=== PATIENT | male | born 1975 | race Caucasian/White ===

== ENCOUNTER 2021-03-29 05:56 | Day surgery (SDC) | payer BC ==
--- NOTE | 2021-03-25 09:34 | RAD REPORT ---
EXAM DESCRIPTION: RAD - Chest Pa And Lat (2 Views) - 03/25/2021 9:22 am CLINICAL HISTORY: preop COMPARISON: No comparisons FINDINGS: No evidence of edema or pneumonia. The heart size is within normal limits.No acute osseous abnormality. No significant pleural effusions or pneumothorax. IMPRESSION: No acute cardiopulmonary disease.
[2021-03-25 09:48] LABS: Absolute Lymphocytes (CBC) 1.7 K/uL (0.7-4.9); Basophils % 1.2 % (0-1.3); Hematocrit 45.1 % (39.6-49.0); Lymphocytes % 30.6 % (15.3-44.8); MPV 8.6 fL (7.6-11.3); RBC Red Blood Cell Count 4.89 M/uL (4.33-5.43)
[2021-03-25 09:53] LABS: Protime INR 0.96
[2021-03-25 10:18] LABS: Potassium 4.4 mmol/L (3.5-5.1)
[2021-03-29] MEDS ORDERED: Ringers Lactate 1,000 ML IV ONE ×2 (06:22→09:59)
[2021-03-29] MEDS ORDERED: NS 0.9% VIAL 10 ML ONE (06:36)
[2021-03-29] MEDS ORDERED: LIDOCAINE 1% MPF 5 ML VIAL ONE ×2 (06:36→07:39)
[2021-03-29] MEDS ORDERED: FENTANYL CITR 100 MCG/2 ML ONE ×4 (06:36→10:15)
[2021-03-29] MEDS ORDERED: dexAMETHasone 4 MG/ML VIAL ONE (06:37)
[2021-03-29] MEDS ORDERED: MIDAZOLAM HCL 2 MG/2 ML INJ ONE (06:37)
[2021-03-29] MEDS ORDERED: CEFAZOLIN/SWI 2gm 2 GM/20 ML SYR ONE (06:43)
[2021-03-29] MEDS ORDERED: ACETAMINOPHEN 500 MG TAB ONE (06:45)
[2021-03-29] MEDS ORDERED: CELECOXIB 100 MG CAPSULE ONE (06:45)
[2021-03-29] MEDS ORDERED: propofoL 200 MG/20 ML VIAL IV ONE (07:38)
--- NOTE | 2021-03-29 10:48 | P.BOP ---
Preoperative diagnosis: left knee ACL tear, left knee medial meniscus tear Postoperative diagnosis: same Primary procedure: left knee arthroscopic ACL reconstruction with Achilles allograft Secondary procedure: left knee arthroscopic partial medial meniscectomy Remedial Masseur: NONE,NONE Estimated blood loss: 5 cc Specimen: none Findings: see dictation Anesthesia: General Complications: None Implants: 7x20 mm Biocomposite screw, 10 x 20 mm Delta screw, Backup Swivelock Fluids & blood products: per anesthesia record; TT: 135 mins @ 300 mmHg Transferred to: Recovery Room Condition: Good
[2021-03-29] MEDS: FENTANYL CITR 100 MCG/2 ML ONE ×2 (11:09→11:24)
--- NOTE | 2021-03-29 11:49 | RAD REPORT ---
EXAM DESCRIPTION: RAD - Knee Left 2 View - 03/29/2021 11:02 am CLINICAL HISTORY: s/p ACL reconstruction partial medial meniscectomy COMPARISON: No comparisons FINDINGS: No fracture or suspicious bone finding identifiable. There are postsurgical changes relate d to ACL reconstruction. Air in fluid in the joint space are as expected.No soft tissue foreign body. IMPRESSION: Postsurgical changes are present the left knee with no suspicious or unexpected finding.
[2021-03-29] MEDS ORDERED: HYDROCODONE/APAP 10/325 TAB ONE (12:12)
--- NOTE | 2021-03-29 14:26 | OP ---
Date of Procedure: 03/29/2021 Surgeon: Berto Snell MD Preoperative Diagnoses: 1. Left knee anterior cruciate ligament tear. 2. Left knee medial meniscus tear. Postoperative Diagnoses: 1. Left knee anterior cruciate ligament tear. 2. Left knee medial meniscus tear. 3. Left knee chondromalacia medial femoral condyle. Procedures: 1. Left knee arthroscopic anterior cruciate ligament reconstruction with Achilles allograft. 2. Left knee arthroscopic partial meniscectomy. Anesthesia: General LMA. Fluids: Per Anesthesia record. Estimated Blood Loss: 5 mL. Implants: 1. A 7 x 20 mm Arthrex BioComposite screw. 2. A 10 x 20 mm delta screw. 3. A SwiveLock backup fixation. Complications: None. Indication For Procedure: Mitchel is a 45-year-old male, who presented to my clinic with signs and symptoms consistent with left knee chronic ACL tear with MRI findings consistent with an ACL tear, medial meniscus tear. I discussed with the patient at length risks and benefits associated with operative and nonoperative treatment and he expressed understanding and elected to proceed with left knee ACL reconstruction with Achilles allograft. Description Of Procedure: After informed consent was obtained, the patient was identified in the preoperative holding area. The left lower extremity was marked. The patient underwent a left adductor canal block performed by Anesthesia for postoperative pain control. He was then taken back to the operating room, transferred on the operating table in supine fashion and placed under general LMA anesthesia. The left lower extremity was then examined and the patient had instability with Adeline with pivot shift. The left lower extremity was then prepped and draped in the usual sterile fashion. A time-out was initiated. The correct patient and procedure were confirmed and identified. The patient did receive his preoperative prophylactic antibiotics. A stab incision was made just lateral to the patellar tendon, and then standard anteromedial and anterolateral portals were created. On the back table, the nurse assist prepared the Achilles allograft for re-implantation using a 9 x 20 mm bone plug and a 65 mm tendon length with 10 mm of width. Diagnostic arthroscopy was performed. The patient was noted to have some grade 2 chondromalacia changes of the undersurface of the patella. The arthroscope was then brought into both medial and lateral gutters. There were no loose bodies found within the gutters. The arthroscope was then brought into the medial compartment where the patient was noted to have a tear in the posterior horn of the medial meniscus. Using meniscal biters and arthroscopic shaver, a partial medial meniscectomy was performed to smooth meniscal borders. There were also some grade 3 chondromalacia changes of the posterior aspect of the medial femoral condyle. The arthroscope was then brought into the intercondylar notch. The patient was noted to have an obvious ACL tear with ACL stumps noted. The ACL remnants were then debrided using an arthroscopic shaver. There was approximately a 10 x 5 mm chondral loose body within the notch and was removed using pituitary grasper. Soft tissues were then debrided off the lateral femoral condyle using a radiofrequency ablator. The arthroscope was brought into the lateral compartment where the patient was noted to have an intact lateral meniscus, which was stable to probe as well as no significant chondromalacia noted to the lateral femoral condyle and lateral tibial plateau. An 11 mm retrocutter was then placed over the ACL insertion on the tibia and over the proximal tibia. The tibial tunnel was made using the retrocutter and the bone remnants were then removed using an arthroscopic shaver and plug was then placed. The knee was then placed in hyperflexion and guidepin was placed using a 2 mm [id number] guide, and a guidepin was placed on the lateral femoral condyle on the lateral thigh. A 4.5 mm reamer was then used to ensure proper placement of the guide pin and proper depth. This was followed by a 10 mm low profile reamer to a depth of 25 mm. Bone remnants were then debrided using an arthroscopic shaver and removed. An Ethibond suture was then passed through the tunnels and brought out through the base of the tibial tunnel. The Achilles allograft was then pulled into position and the hemostats was then used to place a bone plug within the femoral tunnel. There was good overall graft length as well as fits within the femoral tunnel. Femoral tunnel was then notched, tapped, and a 7 x 20 mm screw was then placed. The knee was then placed in range of motion. Had the tendon lengthened and removed all debris. There was no impingement noted on the notch. The arthroscopic instruments were then removed. The knee was then placed in full extension and a 10 x 20 mm BioComposite delta screw was then placed. The knee was then examined. There was overall good stability with Adeline. A backup fixation was then placed using a SwiveLock and the proximal tibia was punched. The wounds were then irrigated thoroughly with normal saline. Subcutaneous tissue was approximated using a 3-0 Monocryl. Sterile dressings were placed. Tourniquet was let down. The patient was placed in the knee immobilizer locked in extension and awakened and transferred to PACU in stable condition. Postoperative Plan: He will be weightbearing as tolerated on the left upper extremity. He will follow up in clinic next week for wound check. He will begin physical therapy per delayed protocol at 2 weeks postop. BITA/LEONARD Voice ID: [id number] Report ID: [id number] JOAO
[2021-03-29 15:09] VITALS: TEMP 97.4; O2SAT 96
[2021-03-29 15:11] VITALS: BP 120/80
== END 2021-03-29 13:00 | disposition home or self-care (01) ==
LOC: OR 05:56
PROVIDERS: ATTEND Orthopaedic Surgery Sports Medicine
PROC: 0MRP4KZ Replacement of Left Knee Bursa and Ligament with Nonautologous Tissue Substitute, Percutaneous Endoscopic Approach (ICD-10-PCS; 2021-03-29)
PROC: 0SBD4ZZ Excision of Left Knee Joint, Percutaneous Endoscopic Approach (ICD-10-PCS; principal; 2021-03-29 07:30)
DX: S83.512A Sprain of anterior cruciate ligament of left knee, initial encounter (principal); S83.242A Other tear of medial meniscus, current injury, left knee, initial encounter; M25.562 Pain in left knee; G47.00 Insomnia, unspecified; Z20.822 Contact with and (suspected) exposure to COVID-19
CPT/HCPCS: 93005; 85025; 80048; 36415; 85610; 85730; 71046; 73560; 29881; 29888; U0002; J2704; J1100; J2250; J3010 ×5; J0690; J7120 ×2

== ENCOUNTER 2022-06-26 14:40 | Emergency (ER) | payer OTHER ==
--- OUTSIDE RECORDS SUMMARY | 2022-06-26 14:47 | XMS REPORT | Continuity of Care Document ---
:1975 Author Organization [facility] t Address [address] [place] [address] Care Team Providers Name Role Phone Albino Marino Attending Clinician Unavailable Jadon Mendoza Attending Clinician Lab, [facility] I Attending Clinician Unavailable Mariola Rondon Attending Clinician MARIOLA ANDRADE Attending Clinician Unavailable Doctor Unassigned, [place] Attending Clinician Unavailable Jonathan Roa Attending Clinician [place] Attending Clinician Payers Payer Name Policy Type Policy Number Effective Date Expiration Date Ayde chavez Blue Cross 6 [id number] 2021 Common Spiri t Blue Shield 00:00:00 - [facility] Blue Cross C1 [id number] 2020 Common Spiri t Blue Shield of 00:00:00 - [facility] Problems Condition Condition Condition Status Onset Resolution Last Treating Co mments Source Name Details Category Date Date Treatment Clinician Date S30XA - [id number] Diagnosis Active 2020-01-06 Memoria CONTUSION - - 13:29:00 l OF SCROTUM CONTUSION 00:01: Her alejandro AND TEST OF SCROTUM 00 AND TEST Active 01/06/2020 [facility] [id number] Hypertrigl Problem Active Co mmon yceridemia Spirit - [facility] [id number] 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 Spirit - [facility] [id number] Migraine Problem Active Comm on without Spirit aura and - [facility] without [facility] migrainosu Medica l s, not Center intractabl e [id number] Primary Problem Active Common insomnia Spirit - [facility] [id number] Body mass Problem Active Com mon index Spirit [BMI] - [facility] 30.0-30.9, [facility] [id number] Other Problem Active Common obesity Spirit due to - [facility] excess [facility] Headache Headache Problem Resolve 2022-04-21 Memoria (finding) (finding) d 02:57:31 l Resolved Magan [facility]20[facility] Contracep Problem Active 2022-04-21 Memoria ion status tion 02:57:31 l (finding) status Magan (finding) Active Problem 04/21/2022 Medical Group,[facility] her Neuro,[facility] History of History Problem Active 2022-04-21 Memoria - of - 02:57:31 l vasectomy vasectomy Herm nina (context-d (context-d ependent ependent category) category) Active Problem 04/21/2022 Medical Group,[facility] her Neuro Hyperlipid Hyperlipi Problem Active 2022-04-21 Memoria emia demia 02:57:31 l (disorder) (disorder) He rmann Active Problem 04/21/2022 [facility] Insomnia Insomnia Problem Active 2022-04-21 Memoria (disorder) (disorder) 02:57:31 l Active Magan Problem 04/21/2022 [facility] Migraine Migraine Problem Active 2022-04-21 Memoria (disorder) (disorder) 02:57:31 l Active [place] Problem 04/21/2022 [facility] Migraine Migraine Problem Active 2022-04-21 Memoria without without 02:57:31 l aura aura Magan (disorder) (disorder) Active Problem 04/21/2022 [facility] Tremor Tremor Problem Active 2022-04-21 Joseph isabella (finding) (finding) 02:57:31 l Active Magan Problem 04/21/2022 [facility] Allergies, Adverse Reactions, Alerts Allergy Allergy Status Severity Reaction(s) Onset Inactive Treating Comm ents Source Name Type Date Date Clinician NO KNOWN Drug Active Univers ALLERGIE Class ity of [facility] sulfa sulfa Active Memoria drugs drugs l Magan Topamax Topamax Active Memoria l [place] [id number] Drug Active hives Common allergy Spirit - [facility] Social History Social Habit Start Date Stop Date Quantity Comments Source Exposure to Not sure [facility] SARS-CoV-2 (event) [facility] [place] History of Tobacco Common Spirit - [facility] Use [facility] Sex Assigned At Common Sp corinne - [facility] Social History 2022-01-03 2022-01-03 [facility] 20:37:24 20:37:24 Smoking Status Start Date Stop Date Source Unknown if ever smoked [facility] Social History [facility] Medications Ordered Filled Start Stop Current Ordering Indication Dosage Frequency Signature Comments Components Source Medication Medication Date Date Medication? Clinician (SIG) Name Name methylPREDN methylPREDN 2021- No QD methylPRED ISolone 4 ISolone 4 03-26- NISolone 4 MG MG 00:00: 00:00 MG 00 :00 methylPREDN methylPREDN 2021- No QD methylPRED ISolone 4 ISolone 4 -26 03- NISolone 4 MG MG 00:00: 00:00 MG 00 :00 Eszopiclone Eszopiclone 0 No QD Eszopiclon 3 MG 3 MG 7-18 e 3 MG 00:00: 00 Eszopiclone Eszopiclone 0 No QD Eszopiclon 3 MG 3 MG 7-18 e 3 MG 00:00: 00 Eszopiclone Eszopiclone 0 No QD Eszopiclon 3 MG 3 MG 7-18 e 3 MG 00:00: 00 amitriptyli Yes 20 mg = 2 M emoria ne 10 mg 7-08 tab, PO, l oral tablet 16:58: Bedtime, # Magan 00 180 tab, 3 Refill(s), [facility]acy: [id number], 167.64, cm, 02/20/22 13:15:00 CDT, Height, 89.091, kg, 02/20/22 13:15:00 CDT, Weight verapamil 2021-0 Yes = 1 cap, Joseph isabella 120 mg oral 6-16 PO, Daily, l capsule, 18:29: # 30 cap, Herm nina extended 00 3 release Refill(s), Pharmacy: [facility] #[id number], 167.64, cm, 02/20/22 13:15:00 CDT, Height, 89.091, kg, 02/20/22 13:15:00 CDT, Weight amitriptyli 2021-0 Yes 20 mg = 2 M emoria ne 10 mg 6-16 tab, PO, l oral tablet 18:27: Bedtime, # [place] 00 60 tab, 4 Refill(s), Pharmacy: [facility] #[id number], 167.64, cm, 02/20/22 13:15:00 CDT, Height, 89.091, kg, 02/20/22 13:15:00 CDT, Weight Eszopiclone Eszopiclone 0 No QD Eszopiclon 3 MG 3 MG 5-05 e 3 MG 00:00: 00 Eszopiclone Eszopiclone 2021-0 No QD Eszopiclon 3 MG 3 MG 5-05 e 3 MG 00:00: 00 verapamil 2021-0 No 80 mg = 1 Mem oria 80 mg oral 5-02 tab, PO, l tablet 15:20: Daily, # [place] 00 90 tab, 3 Refill(s), Pharmacy: [facility] #[id number], 170.18, cm, 01/03/22 15:31:00 CDT, Height, 88.182, kg, 01/03/22 15:31:00 CDT, Weight verapamil 2021-0 Yes 80 mg = 1 Mem oria 80 mg oral 4-29 tab, PO, l tablet 21:49: Daily, # Magan 00 30 tab, 3 Refill(s), Pharmacy: [facility] #[id number], 170.18, cm, 01/03/22 15:31:00 CDT, Height, 88.182, kg, 01/03/22 15:31:00 CDT, Weight Nurtec ODT 2022-0 Yes 75 mg = 1 Me moria 75 mg oral 4-29 tab, PO, l tablet, 21:46: Every [place] disintegrat 00 Other Day, ing # 15 tab, 4 Refill(s) Emgality Yes 120 mg, Memori a Prefilled 4-29 SUB-Q, l Pen 120 21:10: qMonth, 0 Tayler nn mg/mL 00 Refill(s) subcutaneou s solution eszopiclone Yes TAKE 1 Joseph isabella 3 mg oral 4-29 TABLET BY l tablet 20:50: MOUTH [place] 00 IMMEDIATEL Y BEFORE BEDTIME DAILY amitriptyli Yes 25 mg = 1 M emoria ne 25 mg 4-29 tab, TAKE l oral tablet 20:36: 1 TABLET He rmann 00 BY MOUTH EVERY DAY A LITTLE BEFORE BEDTIME amitriptyli 0 No PO, Memori a ne 4-29 Bedtime, 0 l 20:36: Refill(s) [place] 00 verapamil No 40 mg = 1 Mem oria 40 mg oral 4-29 tab, PO, l tablet 20:35: TID, 0 [place] 00 Refill(s) amitriptyli amitriptyli 0 2021- No QD amitriptyl ne 25 MG ne 25 MG 12-06 ine 25 MG 00:00: 00:00 00 :00 amitriptyli amitriptyli 2021-0 2021- No QD amitriptyl ne 25 MG ne 25 MG 12-06 ine 25 MG 00:00: 00:00 00 :00 amitriptyli amitriptyli 2021-0 2021- No QD amitriptyl ne 25 MG ne 25 MG 12-06 ine 25 MG 00:00: 00:00 00 :00 amitriptyli amitriptyli 2021-0 2021- No QD amitriptyl ne 25 MG ne 25 MG 12-06 ine 25 MG 00:00: 00:00 00 :00 amitriptyli amitriptyli 2021-0 2021- No QD amitriptyl ne 25 MG ne 25 MG 12-06 ine 25 MG 00:00: 00:00 00 :00 amitriptyli amitriptyli 2021-0 2- No QD amitriptyl ne 25 MG ne 25 MG 12-06 ine 25 MG 00:00: 00:00 00 :00 Topiramate Topiramate 2021-0 No Topiramate 100 MG 100 MG 1-21 100 MG 00:00: 00 Topiramate Topiramate 2021-0 No Topiramate 100 MG 100 MG -21 100 MG 00:00: 00 Topiramate Topiramate 2021-0 No Topiramate 100 MG 100 MG -21 100 MG 00:00: 00 Phenergan Phenergan 0 No Com mon (Promethazi (Promethazi 1-21 S pirit ne) ne) 00:00: - [facility] Toradol Toradol 0 No 15mg Common (Ketorolac) (Ketorolac) 1-21 S pirit 00:00: - [facility] Kenalog Kenalog 0 No 40mg Common (Triamcinol (Triamcinol 1-21 S pirit one) one) 00:00: - [facility] 00 [facility] Phenergan Phenergan 0 No Com mon (Promethazi (Promethazi 1-21 S pirit ne) ne) 00:00: - [facility] 00 [facility] Toradol Toradol 0 No 15mg Common (Ketorolac) (Ketorolac) 1-21 S pirit 00:00: - [facility] Kenalog Kenalog 0 No 40mg Common (Triamcinol (Triamcinol 1-21 S pirit one) one) 00:00: - [facility] 00 [facility] Phenergan Phenergan 0 No Com mon (Promethazi (Promethazi 1-21 S pirit ne) ne) 00:00: - [facility] 00 [facility] Toradol Toradol 0 No 15mg Common (Ketorolac) (Ketorolac) 1-21 S pirit 00:00: - [facility] Kenalog Kenalog 0 No 40mg Common (Triamcinol (Triamcinol 1-21 S pirit one) one) 00:00: - [facility] 00 [facility] Phenergan Phenergan 0 No Com mon (Promethazi (Promethazi 1-21 S pirit ne) ne) 00:00: - [facility] 00 [facility] Toradol Toradol 0 No 15mg Common (Ketorolac) (Ketorolac) 1-21 S pirit 00:00: - [facility] 00 [facility] Kenalog Kenalog 0 No 40mg Common (Triamcinol (Triamcinol 1-21 S pirit one) one) 00:00: - [facility] 00 [facility] Phenergan Phenergan 0 No 12.5mg C ommon (Promethazi (Promethazi 1-21 S pirit ne) ne) 00:00: - [facility] Toradol Toradol 0 No 15mg Common (Ketorolac) (Ketorolac) 1-21 S pirit 00:00: - [facility] 00 [facility] Kenalog Kenalog 0 No 40mg Common (Triamcinol (Triamcinol 1-21 S pirit one) one) 00:00: - [facility] 00 [facility] Phenergan Phenergan 0 No 12.5mg C ommon (Promethazi (Promethazi 1-21 S pirit ne) ne) 00:00: - [facility] 00 [facility] Toradol Toradol 0 No 15mg Common (Ketorolac) (Ketorolac) 1-21 S pirit 00:00: - [facility] 00 [facility] Kenalog Kenalog 0 No 40mg Common (Triamcinol (Triamcinol 1-21 S pirit one) one) 00:00: - [facility] 00 [facility] Phenergan Phenergan 0 No 12.5mg C ommon (Promethazi (Promethazi 1-21 S pirit ne) ne) 00:00: - [facility] Toradol Toradol 0 No 15mg Common (Ketorolac) (Ketorolac) 1-21 S pirit 00:00: - [facility] 00 [facility] Kenalog Kenalog 2021-0 No 40mg Common (Triamcinol (Triamcinol 1-21 S pirit one) one) 00:00: - [facility] 00 [facility] Phenergan Phenergan 2021-0 No 12.5mg C ommon (Promethazi (Promethazi 1-21 S pirit ne) ne) 00:00: - [facility] 00 [facility] Toradol Toradol 2021-0 No 15mg Common (Ketorolac) (Ketorolac) 1-21 S pirit 00:00: - [facility] 00 [facility] Kenalog Kenalog 2021-0 No 40mg Common (Triamcinol (Triamcinol 1-21 S pirit one) one) 00:00: - [facility] 00 [facility] Phenergan Phenergan 2021-0 No 12.5mg C ommon (Promethazi (Promethazi 1-21 S pirit ne) ne) 00:00: - [facility] 00 [facility] Toradol Toradol 2021-0 No 15mg Common (Ketorolac) (Ketorolac) 1-21 S pirit 00:00: - [facility] 00 [facility] Kenalog Kenalog 2021-0 No 40mg Common (Triamcinol (Triamcinol 1-21 S pirit one) one) 00:00: - [facility] 00 [facility] Phenergan Phenergan 2021-0 No 12.5mg C ommon (Promethazi (Promethazi 1-21 S pirit ne) ne) 00:00: - [facility] 00 [facility] Toradol Toradol 2021-0 No 15mg Common (Ketorolac) (Ketorolac) 1-21 S pirit 00:00: - [facility] 00 [facility] Kenalog Kenalog 2021-0 No 40mg Common (Triamcinol (Triamcinol 1-21 S pirit one) one) 00:00: - [facility] 00 [facility] Eszopiclone Eszopiclone 0 No QD 3 MG 3 MG -17 00:00: 00 Eszopiclone Eszopiclone 2022-0 No QD Eszopiclon 3 MG 3 MG 1-17 e 3 MG 00:00: 00 Eszopiclone Eszopiclone 2-0 No QD Eszopiclon 3 MG 3 MG 1-17 e 3 MG 00:00: 00 Eszopiclone Eszopiclone 2-0 No QD Eszopiclon 3 MG 3 MG 1-17 e 3 MG 00:00: 00 Eszopiclone Eszopiclone 2-0 No QD Eszopiclon 3 MG 3 MG 1-17 e 3 MG 00:00: 00 Eszopiclone Eszopiclone 2021-0 No QD Eszopiclon 3 MG 3 MG 1-17 e 3 MG 00:00: 00 Eszopiclone Eszopiclone 2021-0 No QD Eszopiclon 3 MG 3 MG 1-17 e 3 MG 00:00: 00 Eszopiclone Eszopiclone 2-0 No QD Eszopiclon 3 MG 3 MG 1-17 e 3 MG 00:00: 00 Eszopiclone Eszopiclone 2021-0 No QD Eszopiclon 3 MG 3 MG 1-17 e 3 MG 00:00: 00 Cambia 50 Cambia 50 2-0 No MG MG 03 00:00: 00 Eszopiclone Eszopiclone 2020-1 No QD Eszopiclon 3 MG 3 MG 0-13 e 3 MG 00:00: 00 Eszopiclone Eszopiclone 2020-1 No QD Eszopiclon 3 MG 3 MG 0-13 e 3 MG 00:00: 00 Eszopiclone Eszopiclone 2020-1 No QD Eszopiclon 3 MG 3 MG 0-13 e 3 MG 00:00: 00 Eszopiclone Eszopiclone 2020-1 No QD Eszopiclon 3 MG 3 MG 0-13 e 3 MG 00:00: 00 Eszopiclone Eszopiclone 2020-1 No QD Eszopiclon 3 MG 3 MG 0-13 e 3 MG 00:00: 00 Eszopiclone Eszopiclone 2020-1 No QD Eszopiclon 3 MG 3 MG 0-13 e 3 MG 00:00: 00 Eszopiclone Eszopiclone 2020-09 No QD Eszopiclon 3 MG 3 MG 0-13 e 3 MG 00:00: 00 Eszopiclone Eszopiclone 2020-09 No 1{table QD Eszopiclon 3 MG 3 MG 0-04 t_immed e 3 MG 00:00: iately_ 00 before_ bedtime } Maxalt 10 Maxalt 10 2020-09 No 1{table QD Maxalt 10 MG MG 0-04 t} MG 00:00: 00 Maxalt 10 Maxalt 10 2020-09 No 1{table QD Maxalt 10 MG MG 0-04 t} MG 00:00: 00 Maxalt 10 Maxalt 10 2020-09 No 1{table QD Maxalt 10 MG MG 0-04 t} MG 00:00: 00 Maxalt 10 Maxalt 10 2020-09 No 1{table QD Maxalt 10 MG MG 0-04 t} MG 00:00: 00 Maxalt 10 Maxalt 10 2020-09 No 1{table QD Maxalt 10 MG MG 0-04 t} MG 00:00: 00 Maxalt 10 Maxalt 10 2020-09 No 1{table QD Maxalt 10 MG MG 0-04 t} MG 00:00: 00 Maxalt 10 Maxalt 10 2020-09 No 1{table QD Maxalt 10 MG MG 0-04 t} MG 00:00: 00 Maxalt 10 Maxalt 10 2020-09 No 1{table QD Maxalt 10 MG MG 0-04 t} MG 00:00: 00 Maxalt 10 Maxalt 10 2020-09 No 1{table QD MG MG 0-04 t} 00:00: 00 Eszopiclone Eszopiclone No 1{table QD Eszopiclon 3 MG 3 MG 9-15 t_immed e 3 MG 00:00: iately_ 00 before_ bedtime } HYDROcodone HYDROcodone 202- No 1{table QID HYDROcodon -Acetaminop -Acetaminop 8-12 08-19 t_as_ne e-Acetamin hen 5-325 hen 5-325 00:00: 00:00 eded} ophen MG MG 00 :00 5-325 MG HYDROcodone HYDROcodone 2020- No 1{table QID HYDROcodon -Acetaminop -Acetaminop -04-25 t_as_ne e-Acetamin hen 5-325 hen 5-325 00:00: 00:00 eded} ophen MG MG 00 :00 5-325 MG HYDROcodone HYDROcodone 202- No 1{table QID HYDROcodon -Acetaminop -Acetaminop 04-18 t_as_ne e-Acetamin hen 5-325 hen 5-325 00:00: 00:00 eded} ophen MG MG 00 :00 5-325 MG Eszopiclone Eszopiclone 0 No 1{table QD 2 MG 2 MG 8-03 t_immed 00:00: iately_ 00 before_ bedtime } Eszopiclone Eszopiclone 0 No 1{table QD Eszopiclon 2 MG 2 MG 8-03 t_immed e 2 MG 00:00: iately_ 00 before_ bedtime } Eszopiclone Eszopiclone 0 No 1{table QD Eszopiclon 2 MG 2 MG 8-03 t_immed e 2 MG 00:00: iately_ 00 before_ bedtime } Eszopiclone Eszopiclone 2020-0 No 1{table QD Eszopiclon 2 MG 2 MG 8-03 t_immed e 2 MG 00:00: iately_ 00 before_ bedtime } Eszopiclone Eszopiclone 0 No 1{table QD Eszopiclon 2 MG 2 MG 8-03 t_immed e 2 MG 00:00: iately_ 00 before_ bedtime } HYDROcodone HYDROcodone 2020- No 1{table HYDROcodon -Acetaminop -Acetaminop 04-04 t_as_ne e-Acetamin hen 7.5-325 hen 7.5-325 00:00: 00:00 eded} ophen MG MG 00 :00 7.5-325 MG Mobic 7.5 Mobic 7.5 2021-2020- No 1{table QD Mobic 7.5 MG MG 04-04 t} MG 00:00: 00:00 00 :00 HYDROcodone HYDROcodone 2020- No 1{table -Acetaminop -Acetaminop 04-04 t_as_ne hen 7.5-325 hen 7.5-325 00:00: 00:00 eded} MG MG 00 :00 Mobic 7.5 Mobic 7.5 2020- No 1{table QD MG MG 04-04 t} 00:00: 00:00 00 :00 HYDROcodone HYDROcodone No 1{table HYDROcodon -Acetaminop -Acetaminop 7- t_as_ne e-Acetamin hen 7.5-325 hen 7.5-325 00:00: eded} ophen MG MG 00 7.5-325 MG HYDROcodone HYDROcodone No 1{table HYDROcodon -Acetaminop -Acetaminop 7- t_as_ne e-Acetamin hen 7.5-325 hen 7.5-325 00:00: eded} ophen MG MG 00 7.5-325 MG HYDROcodone HYDROcodone No 1{table -Acetaminop -Acetaminop 7-21 t_as_ne hen 7.5-325 hen 7.5-325 00:00: eded} MG MG 00 HYDROcodone HYDROcodone No 1{table -Acetaminop -Acetaminop 7-21 t_as_ne hen 7.5-325 hen 7.5-325 00:00: eded} MG MG 00 HYDROcodone HYDROcodone No 1{table HYDROcodon -Acetaminop -Acetaminop 7-21 t_as_ne e-Acetamin hen 7.5-325 hen 7.5-325 00:00: eded} ophen MG MG 00 7.5-325 MG HYDROcodone HYDROcodone No 1{table HYDROcodon -Acetaminop -Acetaminop 7-21 t_as_ne e-Acetamin hen 7.5-325 hen 7.5-325 00:00: eded} ophen MG MG 00 7.5-325 MG HYDROcodone HYDROcodone No 1{table HYDROcodon -Acetaminop -Acetaminop 7-21 t_as_ne e-Acetamin hen 7.5-325 hen 7.5-325 00:00: eded} ophen MG MG 00 7.5-325 MG HYDROcodone HYDROcodone No 1{table HYDROcodon -Acetaminop -Acetaminop 7-21 t_as_ne e-Acetamin hen 7.5-325 hen 7.5-325 00:00: eded} ophen MG MG 00 7.5-325 MG HYDROcodone HYDROcodone No 1{table HYDROcodon -Acetaminop -Acetaminop 7-21 t_as_ne e-Acetamin hen 7.5-325 hen 7.5-325 00:00: eded} ophen MG MG 00 7.5-325 MG HYDROcodone HYDROcodone No 1{table HYDROcodon -Acetaminop -Acetaminop 7-21 t_as_ne e-Acetamin hen 7.5-325 hen 7.5-325 00:00: eded} ophen MG MG 00 7.5-325 MG HYDROcodone HYDROcodone No 1{table HYDROcodon -Acetaminop -Acetaminop 7-21 t_as_ne e-Acetamin hen 7.5-325 hen 7.5-325 00:00: eded} ophen MG MG 00 7.5-325 MG HYDROcodone HYDROcodone No 1{table HYDROcodon -Acetaminop -Acetaminop 7-21 t_as_ne e-Acetamin hen 7.5-325 hen 7.5-325 00:00: eded} ophen MG MG 00 7.5-325 MG HYDROcodone HYDROcodone No 1{table HYDROcodon -Acetaminop -Acetaminop 7-21 t_as_ne e-Acetamin hen 7.5-325 hen 7.5-325 00:00: eded} ophen MG MG 00 7.5-325 MG Belsomra 10 Belsomra 10 No 1{table QD Belsomra MG MG 7-06 t_at_be 10 MG 00:00: dtime_a 00 s_neede d} Belsomra 10 Belsomra 10 No 1{table QD Belsomra MG MG 7-06 t_at_be 10 MG 00:00: dtime_a 00 s_neede d} Belsomra 10 Belsomra 10 No 1{table QD MG MG 7-06 t_at_be 00:00: dtime_a 00 s_neede d} ProAir HFA ProAir HFA No 2{puffs ProAir HFA 108 (90 108 (90 3-04 _as_nee 108 (90 Base) Base) 00:00: ded} Base) MCG/ACT MCG/ACT 00 MCG/ACT ProAir HFA ProAir HFA No 2{puffs ProAir HFA 108 (90 108 (90 3-04 _as_nee 108 (90 Base) Base) 00:00: ded} Base) MCG/ACT MCG/ACT 00 MCG/ACT ProAir HFA ProAir HFA No 2{puffs 108 (90 108 (90 3-04 _as_nee Base) Base) 00:00: ded} MCG/ACT MCG/ACT 00 ProAir HFA ProAir HFA No 2{puffs 108 (90 108 (90 3-04 _as_nee Base) Base) 00:00: ded} MCG/ACT MCG/ACT 00 ProAir HFA ProAir HFA No 2{puffs ProAir HFA 108 (90 108 (90 3-04 _as_nee 108 (90 Base) Base) 00:00: ded} Base) MCG/ACT MCG/ACT 00 MCG/ACT ProAir HFA ProAir HFA No 2{puffs ProAir HFA 108 (90 108 (90 3-04 _as_nee 108 (90 Base) Base) 00:00: ded} Base) MCG/ACT MCG/ACT 00 MCG/ACT ProAir HFA ProAir HFA No 2{puffs ProAir HFA 108 (90 108 (90 3-04 _as_nee 108 (90 Base) Base) 00:00: ded} Base) MCG/ACT MCG/ACT 00 MCG/ACT ProAir HFA ProAir HFA No 2{puffs ProAir HFA 108 (90 108 (90 3-04 _as_nee 108 (90 Base) Base) 00:00: ded} Base) MCG/ACT MCG/ACT 00 MCG/ACT ProAir HFA ProAir HFA No 2{puffs ProAir HFA 108 (90 108 (90 3-04 _as_nee 108 (90 Base) Base) 00:00: ded} Base) MCG/ACT MCG/ACT 00 MCG/ACT ProAir HFA ProAir HFA No 2{puffs ProAir HFA 108 (90 108 (90 3-04 _as_nee 108 (90 Base) Base) 00:00: ded} Base) MCG/ACT MCG/ACT 00 MCG/ACT ProAir HFA ProAir HFA No 2{puffs ProAir HFA 108 (90 108 (90 3-04 _as_nee 108 (90 Base) Base) 00:00: ded} Base) MCG/ACT MCG/ACT 00 MCG/ACT ProAir HFA ProAir HFA No 2{puffs ProAir HFA 108 (90 108 (90 3-04 _as_nee 108 (90 Base) Base) 00:00: ded} Base) MCG/ACT MCG/ACT 00 MCG/ACT ProAir HFA ProAir HFA No 2{puffs ProAir HFA 108 (90 108 (90 3-04 _as_nee 108 (90 Base) Base) 00:00: ded} Base) MCG/ACT MCG/ACT 00 MCG/ACT SUMAtriptan SUMAtriptan 2019- No BID SUMAtripta Succinate Succinate 2-15 n 50 MG 50 MG 00:00: Succinate 00 50 MG SUMAtriptan SUMAtriptan 2019- No BID SUMAtripta Succinate Succinate 2-15 n 50 MG 50 MG 00:00: Succinate 00 50 MG SUMAtriptan SUMAtriptan 2020-1 No BID Succinate Succinate 2-15 50 MG 50 MG 00:00: 00 SUMAtriptan SUMAtriptan 2020-1 No BID Succinate Succinate 2-15 50 MG 50 MG 00:00: 00 SUMAtriptan SUMAtriptan 2020-1 No BID SUMAtripta Succinate Succinate 2-15 n 50 MG 50 MG 00:00: Succinate 00 50 MG SUMAtriptan SUMAtriptan 2019-09 No BID SUMAtripta Succinate Succinate 2-15 n 50 MG 50 MG 00:00: Succinate 00 50 MG SUMAtriptan SUMAtriptan 2019- No BID SUMAtripta Succinate Succinate 2-15 n 50 MG 50 MG 00:00: Succinate 00 50 MG SUMAtriptan SUMAtriptan 2019- No BID SUMAtripta Succinate Succinate 2-15 n 50 MG 50 MG 00:00: Succinate 00 50 MG SUMAtriptan SUMAtriptan 2019- No BID SUMAtripta Succinate Succinate 2-15 n 50 MG 50 MG 00:00: Succinate 00 50 MG SUMAtriptan SUMAtriptan 2019- No BID SUMAtripta Succinate Succinate 2-15 n 50 MG 50 MG 00:00: Succinate 00 50 MG SUMAtriptan SUMAtriptan 2019-09 No BID SUMAtripta Succinate Succinate 2-15 n 50 MG 50 MG 00:00: Succinate 00 50 MG SUMAtriptan SUMAtriptan 2019- No BID SUMAtripta Succinate Succinate 2-15 n 50 MG 50 MG 00:00: Succinate 00 50 MG SUMAtriptan SUMAtriptan 2019-09 No BID SUMAtripta Succinate Succinate 2-15 n 50 MG 50 MG 00:00: Succinate 00 50 MG Medrol 4 mg 2019-0 Yes = 1 pkt, Me moria oral tablet 6-25 PO, ONCE, l 20:53: as Magan 00 directed on package labeling, # 21 tab, 0 Refill(s), Pharmacy: [id number], 170.18, cm, 03/01/20 15:38:00 CDT, Height, 84.091, kg, 03/01/20 15:38:00 CDT, Weight meloxicam 2019-0 Yes 7.5 mg = 1 Me moria 7.5 MG Oral 6-25 tab, PO, l Tablet 20:53: BID, PRN [place] [Mobic] 00 Pain, # 60 tab, 1 Refill(s), Pharmacy: [id number], 170.18, cm, 03/01/20 15:38:00 CDT, Height, 84.091, kg, 03/01/20 15:38:00 CDT, Weight gabapentin 2019-0 Yes 100 mg = 1 M emoria 100 MG Oral 5-13 cap, PO, l Capsule 15:14: TID, # 90 Tayler nn 00 cap, 1 Refill(s), Pharmacy: [id number] Acetaminoph 2020-0 Yes 1 tab, PO, Memoria en 325 MG / 5-01 Q4H, PRN l Hydrocodone 20:34: for pain, H ermann Bitartrate 00 X 10 day, 7.5 MG Oral # 40 tab, Tablet 0 [[place] Refill(s), 7.5/325] Pharmacy: [facility] #[id number] Ibuprofen 2020-0 Yes 800 mg = 1 Me moria 800 MG Oral 5-01 tab, PO, l Tablet 13:55: Q8H, PRN Magan [Motrin] 00 Pain, Take with food, # 30 tab, 0 Refill(s), Pharmacy: [facility] #[id number] Cephalexin 2020-0 Yes 500 mg = 1 M emoria 500 MG Oral 4-29 cap, PO, l Capsule 17:26: QID, X 5 Marlon n [Keflex] 00 day, # 20 cap, 0 Refill(s), Pharmacy: [facility] #[id number] tramadol 2020-0 Yes 50 mg = 1 Joseph isabella hydrochlori 4-29 tab, PO, l de 50 MG 17:23: Q6H, PRN Tayler nn Oral Tablet 00 Pain, X 10 day, # 40 tab, 0 Refill(s), Pharmacy: [facility] #[id number] Benzonatate Benzonatate No Benzonatat e Tylenol 325 Tylenol 325 No 1{table 6xD Tylenol MG MG t_as_ne 325 MG eded} Emgality Emgality No 2{ml} Emgality 120 MG/ML 120 MG/ML 120 MG/ML Emgality Emgality No 1{ml} Emgality 120 MG/ML 120 MG/ML 120 MG/ML SUMAtriptan SUMAtriptan No QD SUMAtripta Succinate Succinate n 50 MG 50 MG Succinate 50 MG Albuterol Albuterol No Albuterol Sulfate HFA Sulfate HFA Sulfate HFA Ivermectin Ivermectin No Ivermectin Amitriptyli Amitriptyli No 1{table QD Amitriptyl ne HCl 100 ne HCl 100 t_at_be ine HCl MG MG dtime} 100 MG Advil 200 Advil 200 No TID Advil 200 MG MG MG Excedrin Excedrin No Excedrin Sinus Sinus Sinus Headache Headache Headache Zolpidem Zolpidem No Zolpidem Tartrate Tartrate Tartrate Ubrelvy Ubrelvy No Ubrelvy Multi Multi No Multi Vitamin Vitamin Vitamin Azithromyci Azithromyci No Azithromyc n n in Meloxicam Meloxicam No 2{table QD Meloxicam 7.5 MG 7.5 MG ts} 7.5 MG Ivermectin Ivermectin No Ivermectin Azithromyci Azithromyci No Azithromyc n n in Albuterol Albuterol No Albuterol Sulfate HFA Sulfate HFA Sulfate HFA Multi Multi No Multi Vitamin Vitamin Vitamin Ubrelvy Ubrelvy No Ubrelvy Tylenol 325 Tylenol 325 No 1{table 6xD Tylenol MG MG t_as_ne 325 MG eded} SUMAtriptan SUMAtriptan No QD SUMAtripta Succinate Succinate n 50 MG 50 MG Succinate 50 MG Meloxicam Meloxicam No 2{table QD Meloxicam 7.5 MG 7.5 MG ts} 7.5 MG Amitriptyli Amitriptyli No 1{table QD Amitriptyl ne HCl 100 ne HCl 100 t_at_be ine HCl MG MG dtime} 100 MG Emgality Emgality No 2{ml} Emgality 120 MG/ML 120 MG/ML 120 MG/ML Emgality Emgality No 1{ml} Emgality 120 MG/ML 120 MG/ML 120 MG/ML Advil 200 Advil 200 No TID Advil 200 MG MG MG Benzonatate Benzonatate No Benzonatat e Excedrin Excedrin No Excedrin Sinus Sinus Sinus Headache Headache Headache Zolpidem Zolpidem No Zolpidem Tartrate Tartrate Tartrate Ivermectin Ivermectin No Azithromyci Azithromyci No n n Albuterol Albuterol No Sulfate HFA Sulfate HFA Multi Multi No Vitamin Vitamin Ubrelvy Ubrelvy No Tylenol 325 Tylenol 325 No 1{table 6xD MG MG t_as_ne eded} SUMAtriptan SUMAtriptan No QD Succinate Succinate 50 MG 50 MG Meloxicam Meloxicam No 2{table QD 7.5 MG 7.5 MG ts} Amitriptyli Amitriptyli No 1{table QD ne HCl 100 ne HCl 100 t_at_be MG MG dtime} Emgality Emgality No 2{ml} 120 MG/ML 120 MG/ML Emgality Emgality No 1{ml} 120 MG/ML 120 MG/ML Advil 200 Advil 200 No TID MG MG Benzonatate Benzonatate No Excedrin Excedrin No Sinus Sinus Headache Headache Zolpidem Zolpidem No Tartrate Tartrate Emgality Emgality No 2{ml} 120 MG/ML 120 MG/ML Ivermectin Ivermectin No Amitriptyli Amitriptyli No 1{table QD ne HCl 100 ne HCl 100 t_at_be MG MG dtime} Advil 200 Advil 200 No TID MG MG Benzonatate Benzonatate No Excedrin Excedrin No Sinus Sinus Headache Headache Tylenol 325 Tylenol 325 No 1{table 6xD MG MG t_as_ne eded} Ubrelvy Ubrelvy No HYDROcodone HYDROcodone No 1{table -Acetaminop -Acetaminop t_as_ne hen 7.5-325 hen 7.5-325 eded} MG MG Mobic 7.5 Mobic 7.5 No 1{table QD MG MG t} Multi Multi No Vitamin Vitamin Emgality Emgality No 1{ml} 120 MG/ML 120 MG/ML Azithromyci Azithromyci No n n Albuterol Albuterol No Sulfate HFA Sulfate HFA SUMAtriptan SUMAtriptan No QD Succinate Succinate 50 MG 50 MG Meloxicam Meloxicam No 2{table QD 7.5 MG 7.5 MG ts} Zolpidem Zolpidem No Tartrate Tartrate Emgality Emgality No 2{ml} Emgality 120 MG/ML 120 MG/ML 120 MG/ML Ivermectin Ivermectin No Ivermectin Amitriptyli Amitriptyli No 1{table QD Amitriptyl ne HCl 100 ne HCl 100 t_at_be ine HCl MG MG dtime} 100 MG Advil 200 Advil 200 No TID Advil 200 MG MG MG Benzonatate Benzonatate No Benzonatat e Excedrin Excedrin No Excedrin Sinus Sinus Sinus Headache Headache Headache Tylenol 325 Tylenol 325 No 1{table 6xD Tylenol MG MG t_as_ne 325 MG eded} Ubrelvy Ubrelvy No Ubrelvy HYDROcodone HYDROcodone No 1{table HYDROcodon -Acetaminop -Acetaminop t_as_ne e-Acetamin hen 7.5-325 hen 7.5-325 eded} ophen MG MG 7.5-325 MG Mobic 7.5 Mobic 7.5 No 1{table QD Mobic 7.5 MG MG t} MG Multi Multi No Multi Vitamin Vitamin Vitamin Emgality Emgality No 1{ml} Emgality 120 MG/ML 120 MG/ML 120 MG/ML Azithromyci Azithromyci No Azithromyc n n in Albuterol Albuterol No Albuterol Sulfate HFA Sulfate HFA Sulfate HFA SUMAtriptan SUMAtriptan No QD SUMAtripta Succinate Succinate n 50 MG 50 MG Succinate 50 MG Meloxicam Meloxicam No 2{table QD Meloxicam 7.5 MG 7.5 MG ts} 7.5 MG Zolpidem Zolpidem No Zolpidem Tartrate Tartrate Tartrate HYDROcodone HYDROcodone No 1{table HYDROcodon -Acetaminop -Acetaminop t_as_ne e-Acetamin hen 7.5-325 hen 7.5-325 eded} ophen MG MG 7.5-325 MG Albuterol Albuterol No Albuterol Sulfate HFA Sulfate HFA Sulfate HFA Ubrelvy Ubrelvy No Ubrelvy Ivermectin Ivermectin No Ivermectin Emgality Emgality No 1{ml} Emgality 120 MG/ML 120 MG/ML 120 MG/ML Emgality Emgality No 2{ml} Emgality 120 MG/ML 120 MG/ML 120 MG/ML SUMAtriptan SUMAtriptan No QD SUMAtripta Succinate Succinate n 50 MG 50 MG Succinate 50 MG Azithromyci Azithromyci No Azithromyc n n in Advil 200 Advil 200 No TID Advil 200 MG MG MG Multi Multi No Multi Vitamin Vitamin Vitamin Benzonatate Benzonatate No Benzonatat e Meloxicam Meloxicam No 2{table QD Meloxicam 7.5 MG 7.5 MG ts} 7.5 MG Tylenol 325 Tylenol 325 No 1{table 6xD Tylenol MG MG t_as_ne 325 MG eded} Amitriptyli Amitriptyli No 1{table QD Amitriptyl ne HCl 100 ne HCl 100 t_at_be ine HCl MG MG dtime} 100 MG Excedrin Excedrin No Excedrin Sinus Sinus Sinus Headache Headache Headache Zolpidem Zolpidem No Zolpidem Tartrate Tartrate Tartrate Mobic 7.5 Mobic 7.5 No 1{table QD Mobic 7.5 MG MG t} MG HYDROcodone HYDROcodone No 1{table HYDROcodon -Acetaminop -Acetaminop t_as_ne e-Acetamin hen 7.5-325 hen 7.5-325 eded} ophen MG MG 7.5-325 MG Albuterol Albuterol No Albuterol Sulfate HFA Sulfate HFA Sulfate HFA Ubrelvy Ubrelvy No Ubrelvy Ivermectin Ivermectin No Ivermectin Emgality Emgality No 1{ml} Emgality 120 MG/ML 120 MG/ML 120 MG/ML Emgality Emgality No 2{ml} Emgality 120 MG/ML 120 MG/ML 120 MG/ML SUMAtriptan SUMAtriptan No QD SUMAtripta Succinate Succinate n 50 MG 50 MG Succinate 50 MG Azithromyci Azithromyci No Azithromyc n n in Advil 200 Advil 200 No TID Advil 200 MG MG MG Multi Multi No Multi Vitamin Vitamin Vitamin Benzonatate Benzonatate No Benzonatat e Meloxicam Meloxicam No 2{table QD Meloxicam 7.5 MG 7.5 MG ts} 7.5 MG Tylenol 325 Tylenol 325 No 1{table 6xD Tylenol MG MG t_as_ne 325 MG eded} Amitriptyli Amitriptyli No 1{table QD Amitriptyl ne HCl 100 ne HCl 100 t_at_be ine HCl MG MG dtime} 100 MG Excedrin Excedrin No Excedrin Sinus Sinus Sinus Headache Headache Headache Zolpidem Zolpidem No Zolpidem Tartrate Tartrate Tartrate Mobic 7.5 Mobic 7.5 No 1{table QD Mobic 7.5 MG MG t} MG HYDROcodone HYDROcodone No 1{table HYDROcodon -Acetaminop -Acetaminop t_as_ne e-Acetamin hen 7.5-325 hen 7.5-325 eded} ophen MG MG 7.5-325 MG Albuterol Albuterol No Albuterol Sulfate HFA Sulfate HFA Sulfate HFA Meloxicam Meloxicam No 2{table QD Meloxicam 7.5 MG 7.5 MG ts} 7.5 MG Ivermectin Ivermectin No Ivermectin Emgality Emgality No 2{ml} Emgality 120 MG/ML 120 MG/ML 120 MG/ML Mobic 7.5 Mobic 7.5 No 1{table QD Mobic 7.5 MG MG t} MG SUMAtriptan SUMAtriptan No QD SUMAtripta Succinate Succinate n 50 MG 50 MG Succinate 50 MG Advil 200 Advil 200 No TID Advil 200 MG MG MG Ubrelvy Ubrelvy No Ubrelvy Emgality Emgality No 1{ml} Emgality 120 MG/ML 120 MG/ML 120 MG/ML Tylenol 325 Tylenol 325 No 1{table 6xD Tylenol MG MG t_as_ne 325 MG eded} Zolpidem Zolpidem No Zolpidem Tartrate Tartrate Tartrate Azithromyci Azithromyci No Azithromyc n n in Amitriptyli Amitriptyli No 1{table QD Amitriptyl ne HCl 100 ne HCl 100 t_at_be ine HCl MG MG dtime} 100 MG Excedrin Excedrin No Excedrin Sinus Sinus Sinus Headache Headache Headache Multi Multi No Multi Vitamin Vitamin Vitamin Benzonatate Benzonatate No Benzonatat e Ivermectin Ivermectin No Ivermectin Albuterol Albuterol No Albuterol Sulfate HFA Sulfate HFA Sulfate HFA Ubrelvy Ubrelvy No Ubrelvy HYDROcodone HYDROcodone No 1{table HYDROcodon -Acetaminop -Acetaminop t_as_ne e-Acetamin hen 7.5-325 hen 7.5-325 eded} ophen MG MG 7.5-325 MG SUMAtriptan SUMAtriptan No QD SUMAtripta Succinate Succinate n 50 MG 50 MG Succinate 50 MG Eszopiclone Eszopiclone No 1{table QD Eszopiclon 2 MG 2 MG t_immed e 2 MG iately_ before_ bedtime } Mobic 7.5 Mobic 7.5 No 1{table QD Mobic 7.5 MG MG t} MG Azithromyci Azithromyci No Azithromyc n n in Advil 200 Advil 200 No TID Advil 200 MG MG MG Multi Multi No Multi Vitamin Vitamin Vitamin Tylenol 325 Tylenol 325 No 1{table 6xD Tylenol MG MG t_as_ne 325 MG eded} Meloxicam Meloxicam No 2{table QD Meloxicam 7.5 MG 7.5 MG ts} 7.5 MG Emgality Emgality No Emgality 120 MG/ML 120 MG/ML 120 MG/ML Amitriptyli Amitriptyli No 1{table QD Amitriptyl ne HCl 100 ne HCl 100 t_at_be ine HCl MG MG dtime} 100 MG Excedrin Excedrin No Excedrin Sinus Sinus Sinus Headache Headache Headache Zolpidem Zolpidem No Zolpidem Tartrate Tartrate Tartrate Benzonatate Benzonatate No Benzonatat e Ivermectin Ivermectin No Ivermectin Albuterol Albuterol No Albuterol Sulfate HFA Sulfate HFA Sulfate HFA Ubrelvy Ubrelvy No Ubrelvy HYDROcodone HYDROcodone No 1{table HYDROcodon -Acetaminop -Acetaminop t_as_ne e-Acetamin hen 7.5-325 hen 7.5-325 eded} ophen MG MG 7.5-325 MG SUMAtriptan SUMAtriptan No QD SUMAtripta Succinate Succinate n 50 MG 50 MG Succinate 50 MG Eszopiclone Eszopiclone No 1{table QD Eszopiclon 2 MG 2 MG t_immed e 2 MG iately_ before_ bedtime } Mobic 7.5 Mobic 7.5 No 1{table QD Mobic 7.5 MG MG t} MG Azithromyci Azithromyci No Azithromyc n n in Advil 200 Advil 200 No TID Advil 200 MG MG MG Multi Multi No Multi Vitamin Vitamin Vitamin Tylenol 325 Tylenol 325 No 1{table 6xD Tylenol MG MG t_as_ne 325 MG eded} Meloxicam Meloxicam No 2{table QD Meloxicam 7.5 MG 7.5 MG ts} 7.5 MG Emgality Emgality No Emgality 120 MG/ML 120 MG/ML 120 MG/ML Amitriptyli Amitriptyli No 1{table QD Amitriptyl ne HCl 100 ne HCl 100 t_at_be ine HCl MG MG dtime} 100 MG Excedrin Excedrin No Excedrin Sinus Sinus Sinus Headache Headache Headache Zolpidem Zolpidem No Zolpidem Tartrate Tartrate Tartrate Benzonatate Benzonatate No Benzonatat e Meloxicam Meloxicam No 2{table QD Meloxicam 7.5 MG 7.5 MG ts} 7.5 MG Benzonatate Benzonatate No Benzonatat e Ubrelvy Ubrelvy No Ubrelvy Emgality Emgality No Emgality 120 MG/ML 120 MG/ML 120 MG/ML Multi Multi No Multi Vitamin Vitamin Vitamin Azithromyci Azithromyci No Azithromyc n n in Advil 200 Advil 200 No TID Advil 200 MG MG MG Albuterol Albuterol No Albuterol Sulfate HFA Sulfate HFA Sulfate HFA Emgality Emgality No 2{ml} Emgality 120 MG/ML 120 MG/ML 120 MG/ML Tylenol 325 Tylenol 325 No 1{table 6xD Tylenol MG MG t_as_ne 325 MG eded} Mobic 7.5 Mobic 7.5 No 1{table QD Mobic 7.5 MG MG t} MG Amitriptyli Amitriptyli No 1{table QD Amitriptyl ne HCl 100 ne HCl 100 t_at_be ine HCl MG MG dtime} 100 MG SUMAtriptan SUMAtriptan No QD SUMAtripta Succinate Succinate n 50 MG 50 MG Succinate 50 MG HYDROcodone HYDROcodone No 1{table HYDROcodon -Acetaminop -Acetaminop t_as_ne e-Acetamin hen 7.5-325 hen 7.5-325 eded} ophen MG MG 7.5-325 MG Ivermectin Ivermectin No Ivermectin Excedrin Excedrin No Excedrin Sinus Sinus Sinus Headache Headache Headache Zolpidem Zolpidem No Zolpidem Tartrate Tartrate Tartrate Excedrin Excedrin No Excedrin Sinus Sinus Sinus Headache Headache Headache Benzonatate Benzonatate No Benzonatat e HYDROcodone HYDROcodone No 1{table HYDROcodon -Acetaminop -Acetaminop t_as_ne e-Acetamin hen 7.5-325 hen 7.5-325 eded} ophen MG MG 7.5-325 MG Meloxicam Meloxicam No 2{table QD Meloxicam 7.5 MG 7.5 MG ts} 7.5 MG Azithromyci Azithromyci No Azithromyc n n in Ivermectin Ivermectin No Ivermectin Emgality Emgality No Emgality 120 MG/ML 120 MG/ML 120 MG/ML Albuterol Albuterol No Albuterol Sulfate HFA Sulfate HFA Sulfate HFA Ubrelvy Ubrelvy No Ubrelvy Multi Multi No Multi Vitamin Vitamin Vitamin Mobic 7.5 Mobic 7.5 No 1{table QD Mobic 7.5 MG MG t} MG Zolpidem Zolpidem No Zolpidem Tartrate Tartrate Tartrate HYDROcodone HYDROcodone No 1{table QID HYDROcodon -Acetaminop -Acetaminop t_as_ne e-Acetamin hen 5-325 hen 5-325 eded} ophen MG MG 5-325 MG Emgality Emgality No 2{ml} Emgality 120 MG/ML 120 MG/ML 120 MG/ML Tylenol 325 Tylenol 325 No 1{table 6xD Tylenol MG MG t_as_ne 325 MG eded} Advil 200 Advil 200 No TID Advil 200 MG MG MG Amitriptyli Amitriptyli No 1{table QD Amitriptyl ne HCl 100 ne HCl 100 t_at_be ine HCl MG MG dtime} 100 MG SUMAtriptan SUMAtriptan No QD SUMAtripta Succinate Succinate n 50 MG 50 MG Succinate 50 MG Ubrelvy Ubrelvy No Ubrelvy Multi Multi No Multi Vitamin Vitamin Vitamin Albuterol Albuterol No Albuterol Sulfate HFA Sulfate HFA Sulfate HFA Excedrin Excedrin No Excedrin Sinus Sinus Sinus Headache Headache Headache Benzonatate Benzonatate No Benzonatat e Ivermectin Ivermectin No Ivermectin Azithromyci Azithromyci No Azithromyc n n in HYDROcodone HYDROcodone No 1{table HYDROcodon -Acetaminop -Acetaminop t_as_ne e-Acetamin hen 7.5-325 hen 7.5-325 eded} ophen MG MG 7.5-325 MG Emgality Emgality No 2{ml} Emgality 120 MG/ML 120 MG/ML 120 MG/ML SUMAtriptan SUMAtriptan No QD SUMAtripta Succinate Succinate n 50 MG 50 MG Succinate 50 MG Tylenol 325 Tylenol 325 No 1{table 6xD Tylenol MG MG t_as_ne 325 MG eded} Meloxicam Meloxicam No 2{table QD Meloxicam 7.5 MG 7.5 MG ts} 7.5 MG Emgality Emgality No Emgality 120 MG/ML 120 MG/ML 120 MG/ML Advil 200 Advil 200 No TID Advil 200 MG MG MG Amitriptyli Amitriptyli No 1{table QD Amitriptyl ne HCl 100 ne HCl 100 t_at_be ine HCl MG MG dtime} 100 MG Mobic 7.5 Mobic 7.5 No 1{table QD Mobic 7.5 MG MG t} MG Zolpidem Zolpidem No Zolpidem Tartrate Tartrate Tartrate HYDROcodone HYDROcodone No 1{table QID HYDROcodon -Acetaminop -Acetaminop t_as_ne e-Acetamin hen 5-325 hen 5-325 eded} ophen MG MG 5-325 MG Emgality Emgality No Emgality 120 MG/ML 120 MG/ML 120 MG/ML SUMAtriptan SUMAtriptan No QD SUMAtripta Succinate Succinate n 50 MG 50 MG Succinate 50 MG Emgality Emgality No 2{ml} Emgality 120 MG/ML 120 MG/ML 120 MG/ML Emgality Emgality No Emgality 120 MG/ML 120 MG/ML 120 MG/ML SUMAtriptan SUMAtriptan No QD SUMAtripta Succinate Succinate n 50 MG 50 MG Succinate 50 MG Emgality Emgality No 2{ml} Emgality 120 MG/ML 120 MG/ML 120 MG/ML Emgality Emgality No Emgality 120 MG/ML 120 MG/ML 120 MG/ML SUMAtriptan SUMAtriptan No QD SUMAtripta Succinate Succinate n 50 MG 50 MG Succinate 50 MG Emgality Emgality No 2{ml} Emgality 120 MG/ML 120 MG/ML 120 MG/ML Emgality Emgality No Emgality 120 MG/ML 120 MG/ML 120 MG/ML SUMAtriptan SUMAtriptan No QD SUMAtripta Succinate Succinate n 50 MG 50 MG Succinate 50 MG Emgality Emgality No 2{ml} Emgality 120 MG/ML 120 MG/ML 120 MG/ML Emgality Emgality No Emgality 120 MG/ML 120 MG/ML 120 MG/ML SUMAtriptan SUMAtriptan No QD SUMAtripta Succinate Succinate n 50 MG 50 MG Succinate 50 MG Emgality Emgality No 2{ml} Emgality 120 MG/ML 120 MG/ML 120 MG/ML Emgality Emgality No Emgality 120 MG/ML 120 MG/ML 120 MG/ML SUMAtriptan SUMAtriptan No QD SUMAtripta Succinate Succinate n 50 MG 50 MG Succinate 50 MG Emgality Emgality No 2{ml} Emgality 120 MG/ML 120 MG/ML 120 MG/ML Emgality Emgality No 2{ml} 120 MG/ML 120 MG/ML Mobic 7.5 Mobic 7.5 No 1{table QD MG MG t} Emgality Emgality No 120 MG/ML 120 MG/ML SUMAtriptan SUMAtriptan No QD Succinate Succinate 50 MG 50 MG HYDROcodone HYDROcodone No 1{table -Acetaminop -Acetaminop t_as_ne hen 7.5-325 hen 7.5-325 eded} MG MG Emgality Emgality No 2{ml} Emgality 120 MG/ML 120 MG/ML 120 MG/ML Mobic 7.5 Mobic 7.5 No 1{table QD Mobic 7.5 MG MG t} MG SUMAtriptan SUMAtriptan No QD SUMAtripta Succinate Succinate n 50 MG 50 MG Succinate 50 MG Magnesium Magnesium No Magnesium Oxide Oxide Oxide Emgality Emgality No 2{ml} Emgality 120 MG/ML 120 MG/ML 120 MG/ML Mobic 7.5 Mobic 7.5 No 1{table QD Mobic 7.5 MG MG t} MG SUMAtriptan SUMAtriptan No QD SUMAtripta Succinate Succinate n 50 MG 50 MG Succinate 50 MG Magnesium Magnesium No Magnesium Oxide Oxide Oxide Emgality Emgality No 2{ml} Emgality 120 MG/ML 120 MG/ML 120 MG/ML Mobic 7.5 Mobic 7.5 No 1{table QD Mobic 7.5 MG MG t} MG SUMAtriptan SUMAtriptan No QD SUMAtripta Succinate Succinate n 50 MG 50 MG Succinate 50 MG Magnesium Magnesium No Magnesium Oxide Oxide Oxide SUMAtriptan SUMAtriptan No QD SUMAtripta Succinate Succinate n 50 MG 50 MG Succinate 50 MG Emgality Emgality No 2{ml} Emgality 120 MG/ML 120 MG/ML 120 MG/ML Magnesium Magnesium No Magnesium Oxide Oxide Oxide Topiramate Topiramate No Topiramate 100 MG 100 MG 100 MG Mobic 7.5 Mobic 7.5 No 1{table QD Mobic 7.5 MG MG t} MG Mobic 7.5 Mobic 7.5 No 1{table QD Mobic 7.5 MG MG t} MG Magnesium Magnesium No Magnesium Oxide Oxide Oxide Topiramate Topiramate No Topiramate 100 MG 100 MG 100 MG SUMAtriptan SUMAtriptan No QD SUMAtripta Succinate Succinate n 50 MG 50 MG Succinate 50 MG Emgality Emgality No 2{ml} Emgality 120 MG/ML 120 MG/ML 120 MG/ML Mobic 7.5 Mobic 7.5 No 1{table QD Mobic 7.5 MG MG t} MG Magnesium Magnesium No Magnesium Oxide Oxide Oxide Topiramate Topiramate No Topiramate 100 MG 100 MG 100 MG SUMAtriptan SUMAtriptan No QD SUMAtripta Succinate Succinate n 50 MG 50 MG Succinate 50 MG Emgality Emgality No 2{ml} Emgality 120 MG/ML 120 MG/ML 120 MG/ML Mobic 7.5 Mobic 7.5 No 1{table QD Mobic 7.5 MG MG t} MG Magnesium Magnesium No Magnesium Oxide Oxide Oxide Topiramate Topiramate No Topiramate 100 MG 100 MG 100 MG SUMAtriptan SUMAtriptan No QD SUMAtripta Succinate Succinate n 50 MG 50 MG Succinate 50 MG Emgality Emgality No 2{ml} Emgality 120 MG/ML 120 MG/ML 120 MG/ML Mobic 7.5 Mobic 7.5 No 1{table QD Mobic 7.5 MG MG t} MG Magnesium Magnesium No Magnesium Oxide Oxide Oxide Topiramate Topiramate No Topiramate 100 MG 100 MG 100 MG SUMAtriptan SUMAtriptan No QD SUMAtripta Succinate Succinate n 50 MG 50 MG Succinate 50 MG Emgality Emgality No 2{ml} Emgality 120 MG/ML 120 MG/ML 120 MG/ML Topiramate Topiramate No Topiramate 100 MG 100 MG 100 MG HYDROcodone HYDROcodone No 1{table HYDROcodon -Acetaminop -Acetaminop t_as_ne e-Acetamin hen 7.5-325 hen 7.5-325 eded} ophen MG MG 7.5-325 MG Mobic 7.5 Mobic 7.5 No 1{table QD Mobic 7.5 MG MG t} MG Emgality Emgality No 2{ml} Emgality 120 MG/ML 120 MG/ML 120 MG/ML SUMAtriptan SUMAtriptan No QD SUMAtripta Succinate Succinate n 50 MG 50 MG Succinate 50 MG Magnesium Magnesium No Magnesium Oxide Oxide Oxide Topiramate Topiramate No Topiramate 100 MG 100 MG 100 MG Emgality Emgality No 2{ml} Emgality 120 MG/ML 120 MG/ML 120 MG/ML HYDROcodone HYDROcodone No 1{table HYDROcodon -Acetaminop -Acetaminop t_as_ne e-Acetamin hen 7.5-325 hen 7.5-325 eded} ophen MG MG 7.5-325 MG SUMAtriptan SUMAtriptan No QD SUMAtripta Succinate Succinate n 50 MG 50 MG Succinate 50 MG Mobic 7.5 Mobic 7.5 No 1{table QD Mobic 7.5 MG MG t} MG Magnesium Magnesium No Magnesium Oxide Oxide Oxide HYDROcodone HYDROcodone No 1{table HYDROcodon -Acetaminop -Acetaminop t_as_ne e-Acetamin hen 7.5-325 hen 7.5-325 eded} ophen MG MG 7.5-325 MG Emgality Emgality No 2{ml} Emgality 120 MG/ML 120 MG/ML 120 MG/ML Emgality Emgality No Emgality 120 MG/ML 120 MG/ML 120 MG/ML Amitriptyli Amitriptyli No Amitriptyl ne HCl 10 ne HCl 10 ine HCl 10 MG MG MG Topiramate Topiramate No Topiramate 100 MG 100 MG 100 MG Mobic 7.5 Mobic 7.5 No 1{table QD Mobic 7.5 MG MG t} MG Magnesium Magnesium No Magnesium Oxide Oxide Oxide SUMAtriptan SUMAtriptan No QD SUMAtripta Succinate Succinate n 50 MG 50 MG Succinate 50 MG Emgality Emgality No Emgality 120 MG/ML 120 MG/ML 120 MG/ML Amitriptyli Amitriptyli No Amitriptyl ne HCl 10 ne HCl 10 ine HCl 10 MG MG MG Topiramate Topiramate No Topiramate 100 MG 100 MG 100 MG Emgality Emgality No 2{ml} Emgality 120 MG/ML 120 MG/ML 120 MG/ML Azithromyci Azithromyci No QD Azithromyc n 250 MG n 250 MG in 250 MG SUMAtriptan SUMAtriptan No QD SUMAtripta Succinate Succinate n 50 MG 50 MG Succinate 50 MG Mobic 7.5 Mobic 7.5 No 1{table QD Mobic 7.5 MG MG t} MG Magnesium Magnesium No Magnesium Oxide Oxide Oxide HYDROcodone HYDROcodone No 1{table HYDROcodon -Acetaminop -Acetaminop t_as_ne e-Acetamin hen 7.5-325 hen 7.5-325 eded} ophen MG MG 7.5-325 MG Emgality Emgality No Emgality 120 MG/ML 120 MG/ML 120 MG/ML Amitriptyli Amitriptyli No Amitriptyl ne HCl 10 ne HCl 10 ine HCl 10 MG MG MG Topiramate Topiramate No Topiramate 100 MG 100 MG 100 MG Emgality Emgality No 2{ml} Emgality 120 MG/ML 120 MG/ML 120 MG/ML Azithromyci Azithromyci No QD Azithromyc n 250 MG n 250 MG in 250 MG SUMAtriptan SUMAtriptan No QD SUMAtripta Succinate Succinate n 50 MG 50 MG Succinate 50 MG Mobic 7.5 Mobic 7.5 No 1{table QD Mobic 7.5 MG MG t} MG Magnesium Magnesium No Magnesium Oxide Oxide Oxide HYDROcodone HYDROcodone No 1{table HYDROcodon -Acetaminop -Acetaminop t_as_ne e-Acetamin hen 7.5-325 hen 7.5-325 eded} ophen MG MG 7.5-325 MG Vital Signs Vital Name Observation Time Observation Value Comments Source height 2022-03-26 15:00:00 67 [in_i] [facility] weight 2022-03-26 15:00:00 195 [lb_av] [facility] bmi 2022-03-26 15:00:00 30.54 kg/m2 [facility] height 2022-03-24 11:40:00 67 [in_i[facility] 11:40:00 195 [lb_av] [facility] temperature 2022-03-24 11:40:00 98 [degF] [facility] bmi 2022-03-24 11:40:00 30.54 kg/m2 [facility] blood pressure 2022-03-24 11:40:00 128 mm[Hg] [facility] systolic [facility] blood pressure 2022-03-24 11:40:00 73 mm[Hg] [facility] diastolic [facility] height 2021-12-24 16:40:00 67 [in_i] [facility] 2021-12-24 16:40:00 195 [lb_av] [facility] temperature 2021-12-24 16:40:00 98 [degF] [facility] bmi 2021-12-24 16:40:00 30.54 kg/m2 [facility] 2021-09-27 14:00:00 67 [in_i] [facility] weight 2021-09-27 14:00:00 197 [lb_av] [facility] temperature 2021-09-27 14:00:00 97 [degF] [facility] bmi 2021-09-27 14:00:00 30.85 kg/m2 [facility] oximetry 2021-09-27 14:00:00 99 % [facility] respiratory rate 2021-09-27 14:00:00 18 /min Comm on [facility] blood pressure 2021-09-27 14:00:00 135 mm[Hg] [facility] blood pressure 2021-09-27 14:00:00 86 mm[Hg] [facility] diastolic [facility] height 2021 08:30:00 67 [in_i] [facility] weight 2021 08:30:00 196.4 [lb_av] [facility] temperature 2021 08:30:00 97.3 [degF] [facility] bmi 2021 08:30:00 30.76 kg/m2 [facility] oximetry 2021 08:30:00 100 % [facility] respiratory rate 2021 08:30:00 17 /min Comm on [facility] blood pressure 2021 08:30:00 133 mm[Hg] [facility] systolic [facility] blood pressure 2021 08:30:00 88 mm[Hg] [facility] diastolic [facility] height 2021-06-25 08:00:00 67 [in_i] [facility] weight 2021-06-25 08:00:00 195 [lb_av] [facility] temperature 2021-06-25 08:00:00 97.3 [degF] [facility] bmi 2021-06-25 08:00:00 30.54 kg/m2 [facility] blood pressure 2021-06-25 08:00:00 132 mm[Hg] [facility] blood pressure 2021-06-25 08:00:00 84 mm[Hg] [facility] diastolic [facility] height 2021-06-19 14:10:00 67 [in_i] [facility] weight 2021-06-19 14:10:00 195 [lb_av] [facility] - [facility] temperature 2021-06-19 14:10:00 98 [degF] [facility] bmi 2021-06-19 14:10:00 30.54 kg/m2 [facility] blood pressure 2021-06-19 14:10:00 125 mm[Hg] [facility] systolic [facility] blood pressure 2021-06-19 14:10:00 74 mm[Hg] [facility] diastolic [facility] height 2021-05-22 14:10:00 67 [in_i] [facility] weight 2021-05-22 14:10:00 195 [lb_av] [facility] temperature 2021-05-22 14:10:00 98 [degF] [facility] bmi 2021-05-22 14:10:00 30.54 kg/m2 [facility] height 2021-04-18 08:15:00 67 [in_i] [facility] weight 2021-04-18 08:15:00 198 [lb_av] [facility] temperature 2021-04-18 08:15:00 98.0 [degF] [facility] bmi 2021-04-18 08:15:00 31.01 kg/m2 [facility] blood pressure 2021-04-18 08:15:00 144 mm[Hg] [facility] blood pressure 2021-04-18 08:15:00 86 mm[Hg] [facility] diastolic [facility] height 2021-04-09 11:50:00 67 [in_i] [facility] weight 2021-04-09 11:50:00 198 [lb_av] [facility] temperature 2021-04-09 11:50:00 98 [degF] [facility] bmi 2021-04-09 11:50:00 31.01 kg/m2 [facility] height 2021-04-04 10:30:00 67 [in_i] [facility] weight 2021-04-04 10:30:00 199 [lb_av] [facility] temperature 2021-04-04 10:30:00 97.3 [degF] [facility] bmi 2021-04-04 10:30:00 31.16 kg/m2 [facility] blood pressure 2021-04-04 10:30:00 136 mm[Hg] [facility] - systolic [facility] blood pressure 2021-04-04 10:30:00 84 mm[Hg] [facility] - diastolic [facility] Systolic (mm Hg) 2022-02-20 18:09:00 [facility] Diastolic (mm Hg) 2022-02-20 18:09:00 [facility] Heart Rate 2022-02-20 18:09:00 [facility] Respitory Rate 2022-02-20 18:09:00 [facility] Height 2022-02-20 18:09:00 167.64 cm [facility] Weight 2022-02-20 18:09:00 [facility] BMI Calculated 2022-02-20 18:09:00 [facility] Systolic (mm Hg) 2022-01-03 20:31:00 [facility] Diastolic (mm Hg) 2022-01-03 20:31:00 [facility] Heart Rate 2022-01-03 20:31:00 [facility] Respitory Rate 2022-01-03 20:31:00 [facility] Height 2022-01-03 20:31:00 170.18 cm [facility] Weight 2022-01-03 20:31:00 [facility] BMI Calculated 2022-01-03 20:31:00 [facility] Systolic (mm Hg) 2020-03-29 13:47:00 [facility] Diastolic (mm Hg) 2020-03-29 13:47:00 [facility] Height 2020-03-29 13:47:00 170.18 cm [facility] Weight 2020-03-29 13:47:00 [facility] BMI Calculated 2020-03-29 13:47:00 [facility] Systolic (mm Hg) 2020-03-01 20:38:00 Joseph [facility] Diastolic (mm Hg) 2020-03-01 20:38:00 [facility] Height 2020-03-01 20:38:00 170.18 cm [facility] Weight 2020-03-01 20:38:00 [facility] BMI Calculated 2020-03-01 20:38:00 [facility] Systolic (mm Hg) 2020-01-18 14:41:00 [facility] Diastolic (mm Hg) 2020-01-18 14:41:00 [facility] Height 2020-01-18 14:41:00 170.18 cm [facility] Weight 2020-01-18 14:41:00 [facility] BMI Calculated 2020-01-18 14:41:00 [facility] Systolic (mm Hg) 2020-01-09 13:54:00 Joseph rial [facility] Diastolic (mm Hg) 2020-01-09 13:54:00 [facility] Weight 2020-01-09 13:54:00 [facility] Systolic (mm Hg) 2020-01-06 13:36:00 Joseph rial Mag[facility] Diastolic (mm Hg) 2020-01-06 13:36:00 [facility] orial [facility] Heart Rate 2020-01-06 13:36:00 [facility] Systolic (mm Hg) 2020-01-04 18:12:00 [facility] Diastolic (mm Hg) 2020-01-04 18:12:00 [facility] Procedures Procedure Date / Time Performing Clinician Source Performed [facility] 2022-04-19 00:23:00 [facility] muscle(s); muscle(s) innervated by facial, trigeminal, cervical spinal and accessory nerves, bilateral (eg, for chronic migraine) Vasectomy, unilateral or 2020-01-04 17:23:00 [facility] bilateral (separate procedure), including postoperative semen examination(s) Knee joint [facility] operation<sup>1</sup> Vasectomy [facility] Encounters Start End Encounter Admission Attending Care Care Encounter Source Date/Time Date/Time Type Type Clinicians Facility Department ID 2021-12-03 Outpatient Marino, [facility] [id number] Common 10:41:02 Albino [facility] 2021-10-02 Outpatient Marino, [facility] [id number] Common 14:40:30 Albino [facility] 2021-10-02 Outpatient Marino, [facility] [id number] Common 14:38:39 Albino [facility] 2021-10-02 Outpatient Marino, [facility] [id number] Common 14:29:57 Albino [facility] 2021-10-02 Outpatient Marino, [facility] [id number] Common 14:25:45 Albino [facility] 2021-10-02 Outpatient Marino, [facility] [id number] Common 14:02:05 Albino 16545 [facility] 2021-10-02 Outpatient Marino, [facility] [id number] Common 13:59:25 Albino [facility] 2021-10-02 Outpatient Marino, [facility] [id number] Common 13:34:09 Albino [facility] 2021-10-02 Outpatient Marino, [facility] [id number] Common 13:32:52 Albino [facility] 2021-10-02 Outpatient Marino, [facility] [id number] Common 13:29:31 Albino [facility] 2021-10-02 Outpatient Marino, [facility] [id number] Common 13:23:04 Albino [facility] 2021-10-02 Outpatient Marino, STLC [facility] [id number] Common 13:22:24 Albino 19398 [facility] 2021-10-02 Out[place], [place] [id number] Common 13:13:21 Albino 17892 [facility] 2021-10-02 Outpatient Marino, [facility] [place] [id number] Common 13:05:38 Albino 75314 [facility] 2021-10-02 Outpatient Marino, STLC [place] [id number] Common 12:56:51 Albino 94490 [facility] 2021-10-02 Outpatient Marino, [facility] [place] [id number] Common 12:55:32 Albino 10244 [facility] 2021-10-02 Outpatient Marino, STLC [place] [id number] Common 12:36:05 Albino 73771 [facility] 2021-10-02 Outpatient Marino, [facility] [place] [id number] Common 12:30:53 Albino 97936 [facility] 2021-10-02 Outpatient [place], [place] [id number] Common 12:13:41 Albino 65500 [facility] 2021-10-02 Outpatient Marino, [facility] [place] [id number] Common 12:05:35 Albino 58949 [facility] 2021-10-02 Outpatient Marino, [place] [id number] Common 12:03:53 Albino 96492 [facility] 2021-10-02 Outpatient ST[facility] [place] [id number] Common 12:01:11 54528 [facility] 2022-07-21 2022-07-21 Outpatient MHIE MHIE [id number] [facility] 16:15:00 16:15:00 03 l Magan 2022-04-18 2022-04-19 Outpatient nullFlavo MNA [id number] [facility] 21:15:00 04:59:59 r Neurology 02 john Carrero 2022-04-18 2022-04-18 Outpatient THIEN Mendoza [id number] 16:15:00 23:59:59 Jadon Marian Quintanilla 2022-04-18 2022-04-18 Outpatient MHIE MHIE [id number] [facility] 16:15:00 16:15:00 02 john CostelloMagan 2022-03-26 2022-03-26 OFFICE STLMLC STLMLC [id number] Co mmon 00:00:00 00:00:00 VISIT EST Spir it PT LEVEL 3 [facility] 2022-03-26 2022-03-26 (TEL) STLMLC STLMLC [id number] Co mmon 00:00:00 00:00:00 [facility] 2022-03-24 2022-03-24 OFFICE STLMLC STLMLC [id number] Co mmon 00:00:00 00:00:00 VISIT EST Spir it PT LEVEL 3 [facility] 2022-02-20 2022-02-21 Outpatient nullFlavo MNA [id number] [facility] 18:00:00 04:59:59 r Neurology 01 john Tamar Carrero 2022-02-20 2022-02-20 Outpatient THIEN MendozaMISCHER [id number] 13:00:00 23:59:59 Jadon 01 Dwight 2022-02-20 2022-02-20 Outpatient MHIE MHIE [id number] [facility] 13:00:00 13:00:00 01 john Magan 2022-01-03 2022-01-04 Outpatient nullFlavo MNA [id number] [facility] 20:30:00 04:59:59 r Neurology 00 john Tamar Carrero 2022-01-03 2022-01-03 Outpatient THIEN MendozaSCHPABLO [id number] 15:30:00 23:59:59 Jadon 00 Dwight 2022-01-03 2022-01-03 Outpatient MHIE MHIE [id number] [facility] 15:30:00 15:30:00 00 john Carrero 2022-01-01 2022-01-01 (TEL) STLMLC STLMLC [id number] Co mmon 00:00:00 00:00:00 [facility] 2021-12-24 2021-12-24 OFFICE STLMLC STLMLC [id number] Co mmon 00:00:00 00:00:00 VISIT EST Spir it PT LEVEL 3 - [facility] 2021-12-17 2021-12-17 (TEL) STLMLC STLMLC [id number] Co mmon 00:00:00 00:00:00 [facility] 2021-12-06 2021-12-06 (TEL) STLMLC STLMLC [id number] Co mmon 00:00:00 00:00:00 [facility] 2021-12-06 2021-12-06 (TEL) STLMLC STLMLC [id number] Co mmon 00:00:00 00:00:00 [facility] 2021-12-04 2021-12-04 (TEL) STLMLC STLMLC [id number] Co mmon 00:00:00 00:00:00 [facility] 2021-11-29 2021-11-29 (TEL) STLMLC STL[facility]C [id number] Co mmon 00:00:00 00:00:00 [facility] 2021-09-27 2021-09-27 (TEL) STLMLC STLMLC [id number] Co mmon 00:00:00 00:00:00 [facility] 2021-09-27 2021-09-27 (TEL) STLMLC STLMLC [id number] Co mmon 00:00:00 00:00:00 [facility] 2021-09-27 2021-09-27 OFFICE STLMLC STLMLC [id number] Co mmon 00:00:00 00:00:00 VISIT EST Spir it PT LEVEL 3 - [facility] 2021 2021 PREV VISIT STLMLC STLMLC [id number] Common 00:00:00 00:00:00 EST AGE [facility] 40-64 - [facility] 2021-08-22 2021-08-22 (TEL) STLMLC STLMLC [id number] Co mmon 00:00:00 00:00:00 [facility] 2021-08-22 2021-08-22 (TEL) STLMLC STLMLC [id number] Co mmon 00:00:00 00:00:00 [facility] 2021-06-26 2021-06-26 (TEL) STLMLC STLMLC [id number] Co mmon 00:00:00 00:00:00 [facility] 2021-06-25 2021-06-25 (TEL) STLMLC STLMLC [id number] Co mmon 00:00:00 00:00:00 [facility] 2021-06-25 2021-06-25 Postop STLMLC STLMLC [id number] Co mmon 00:00:00 00:00:00 visit [facility] 2021-06-19 2021-06-19 OFFICE STLMLC STLMLC [id number] Co mmon 00:00:00 00:00:00 VISIT EST Spir it PT LEVEL 3 [facility] 2021-06-10 2021-06-10 (TEL) STLMLC STLMLC [id number] Co mmon 00:00:00 00:00:00 [facility] 2021-05-23 2021-05-23 (TEL) STLMLC STLMLC [id number] Co mmon 00:00:00 00:00:00 [facility] 2021-05-22 2021-05-22 OFFICE STLMLC STLMLC [id number] Co mmon 00:00:00 00:00:00 VISIT EST Spir it PT LEVEL 3 [facility] 2021-05-20 2021-05-20 (TEL) STLMLC STLMLC [id number] Co mmon 00:00:00 00:00:00 [facility] 2021-04-24 2021-04-24 (TEL) STLMLC STLMLC [id number] Co mmon 00:00:00 00:00:00 [facility] 2021-04-18 2021-04-18 (TEL) STLMLC STLMLC [id number] Co mmon 00:00:00 00:00:00 [facility] 2021-04-18 2021-04-18 Postop STLMLC STLMLC [id number] Co mmon 00:00:00 00:00:00 visit [facility] 2021-04-17 2021-04-17 (TEL) STLMLC STLMLC [id number] Co mmon 00:00:00 00:00:00 [facility] 2021-04-09 2021-04-09 OFFICE STLMLC STLMLC [id number] Co mmon 00:00:00 00:00:00 VISIT EST Spir it PT LEVEL [address] [place] [address] 2021-04-04 2021-04-04 (TEL) STLMLC STLMLC [id number] Co mmon 00:00:00 00:00:00 [facility] 2021-04-04 2021-04-04 Postop STLMLC STLMLC [id number] Co mmon 00:00:00 00:00:00 visit [facility] 2021-03-27 2021-03-27 (TEL) STLMLC STLMLC [id number] Co mmon 00:00:00 00:00:00 [facility] 2021-03-22 2021-03-22 Outpatient STLMLC STLMLC [id number] Common 00:00:00 00:00:00 [facility] 2021-03-12 2021-03-12 Outpatient STLMLC STLMLC [id number] Common 00:00:00 00:00:00 [facility] 2021-03-12 2021-03-12 (TEL) STLMLC STLMLC [id number] Co mmon 00:00:00 00:00:00 [facility] 2021-03-06 2021-03-06 Outpatient STLMLC STLMLC [id number] Common 00:00:00 00:00:00 [facility] 2021-03-06 2021-03-06 Outpatient STLMLC STLMLC [id number] Common 00:00:00 00:00:00 [facility] 2021-02-26 2021-02-26 Outpatient STLMLC STLMLC [id number] Common 00:00:00 00:00:00 [facility] 2021-02-25 2021-02-25 Outpatient STLMLC STLMLC [id number] Common 00:00:00 00:00:00 [facility] 2021-02-18 2021-02-18 Outpatient STLMLC STLMLC [id number] Common 00:00:00 00:00:00 [facility] 2021-02-14 2021-02-14 Outpatient STLMLC STLMLC [id number] Common 00:00:00 00:00:00 [facility] 2020-12-31 2020-12-31 Outpatient STLMLC STLMLC [id number] Common 00:00:00 00:00:00 [facility] 2020-12-24 2020-12-24 Outpatient STLMLC STLMLC [id number] Common 00:00:00 00:00:00 [facility] 2020-11-28 2020-11-28 Outpatient STLMLC STLMLC [id number] Common 00:00:00 00:00:00 [facility] 2020-11-08 2020-11-08 Outpatient STLMLC STLMLC [id number] Common 00:00:00 00:00:00 [facility] 2020-11-07 2020-11-07 Outpatient STLMLC STLMLC [id number] Common 00:00:00 00:00:00 [facility] 2020-11-02 2020-11-02 Laboratory Lab, Adc Fam Pob I [facility] [id number] Univers 11:46:22 12:06:22 Only Mariola [facility] [id number] [employer] [facility] [id number] Rosalio as Professio [phone] [address] Office [address] 2020-11-02 2020-11-02 Outpatient Matt [facility] [id number] Univers 11:40:00 11:40:00 MARIOLA galloway [facility] 2020-11-02 2020-11-02 Letter Doctor MARY [id number] Univers 00:00:00 00:00:00 (Out) Unassigned, MIKE [id number] ity of [facility] [id number] Rosalio as [phone] [place] [address] [address] 2020-10-29 2020-10-29 Outpatient STLMLC STLMLC [id number] Common 00:00:00 00:00:00 [facility] 2020-10-29 2020-10-29 Outpatient STLMLC STLMLC [id number] Common 00:00:00 00:00:00 [facility] 2020-10-22 2020-10-22 Outpatient STLMLC STLMLC [id number] Common 00:00:00 00:00:00 [facility] 2020-09-19 2020-09-19 Outpatient STLMLC STLMLC [id number] Common 00:00:00 00:00:00 [facility] 2020-09-19 2020-09-19 Outpatient STLMLC STLMLC [id number] Common 00:00:00 00:00:00 [facility] 2020-09-05 2020-09-05 Outpatient STLMLC STLMLC [id number] Common 00:00:00 00:00:00 [facility] 2020-08-22 2020-08-22 Outpatient STLMLC STLMLC [id number] Common 00:00:00 00:00:00 [facility] 2020-08-21 2020-08-21 Outpatient STLMLC STLMLC [id number] Common 00:00:00 00:00:00 [facility] 2020-08-08 2020-08-08 Outpatient STLMLC STLMLC [id number] Common 00:00:00 00:00:00 [facility] 2020-07-24 2020-07-24 Outpatient STLMLC STLMLC [id number] Common 00:00:00 00:00:00 [facility] 2020-07-09 2020-07-09 Outpatient STLMLC STLMLC [id number] Common 00:00:00 00:00:00 [facility] 2020-04-11 2020-04-11 Outpatient MHIE MHIE [id number] [facility] 09:00:00 09:00:00 03 [facility] 2020-03-29 2020-03-30 Outpatient nullFlavo [facility] [id number] Mem[facility] 13:45:00 04:59:59 r Urology 06 [facility] 2020-03-29 2020-03-29 Outpatient JaninaHiram johnsonit MG [id number] 08:45:00 23:59:59 [place] 2020-03-29 2020-03-29 Outpatient MHIE MHIE [id number] [facility] 08:45:00 08:45:00 06 [facility] 2020-03-01 2020-03-02 [place] [id number] [facility] 20:15:00 04:59:59 r Urology 05 [facility] 2020-03-01 2020-03-01 Outpatient JaninaHiram johnsonit [facility] [id number] 15:15:00 23:59:59 [place] 2020-03-01 2020-03-01 Outpatient MHIE IE [id number] [facility] 15:15:00 15:15:00 05 [facility] 2020-01-20 2020-01-21 Outpt Diag nullFlavo [facility] [id number] Memoria 13:23:00 04:59:00 Services r Outpatient 01 [facility] 2020-01-20 2020-01-20 Outpatient Hiram Roait MHOIP MHOIP [id number] 08:23:00 23:59:00 [place] 2020-01-18 2020-01-19 [place] [id number] [facility] 14:45:00 04:59:59 r Urology 04 [facility] 2020-01-18 2020-01-18 Outpatient JaninaHiram johnsonit MG MG [id number] 09:45:00 23:59:59 [place] 2020-01-18 2020-01-18 Outpatient MHIE IE [id number] [facility] 09:45:00 09:45:00 04 [facility] 2020-01-09 2020-01-10 Outpatient nullFlavo [facility] [id number] Memoria 13:30:00 04:59:59 r Urology 02 [facility] 2020-01-09 2020-01-09 Outpatient Jonathan Roa [facility] [id number] 08:30:00 23:59:59 [place] 2020-01-09 2020-01-09 Outpatient ZULY CARUSO [id number] [facility] 08:30:00 08:30:00 02 [facility] 2020-01-06 2020-01-07 Outpatient nullFlavo [facility] [id number] Memoria 13:30:00 04:59:59 r Urology 01 l [facility] 2020-01-06 2020-01-07 Outpt Diag nullFlavo [facility] [id number] Memoria 18:19:00 04:59:00 Services r Outpatient 00 l [facility] 2020-01-06 2020-01-06 Outpatient Jonathan Roa [facility] [id number] 08:30:00 23:59:59 [place] 2020-01-06 2020-01-06 Outpatient [place], [id number] 13:19:00 23:59:00 Lily Mora [id number] 5.30 2020-01-06 2020-01-06 Outpatient ZULY CARUSO [id number] [facility] 08:30:00 08:30:00 01 [facility] 2020-01-04 2020-01-05 Outpatient nullFlavo [facility] [id number] Memoria 16:00:00 04:59:59 r Urology 00 l [facility] 2020-01-04 2020-01-04 Outpatient Jonathan Roa [facility] [id number] 11:00:00 23:59:59 Erwin 00 Results Test Description Test Time Test Comments Results Result Comments Source URINE AND STOOL 2020-03-01 20:26:00 Test Item Value Reference Range Interpretation Comme nts POC UA Color (test code = POC UA Color) Yellow *NA*(03/01/20 3:26 PM ) [facility] [id number] 20:26:00 Test Item Value Reference Range Interpretation Comments POC UA Turbidity (test Clear *NA*(03/01/20 code = POC UA Turbidity) 3:26 PM) [facility] [id number] 20:26:00 Test Item Value Reference Range Interpretation Comments POC UA SG (test code = >=1.030 *ABN*(03/01/20 POC UA SG) 3:26 PM) [facility] [id number] 20:26:00 Test Item Value Reference Range Interpretation Comments POC UA pH (test code = POC UA pH) 6.0 1 5.0-8.0 [facility] [id number] 20:26:00 Test Item Value Reference Range Interpretation Comments POC UA Prot (test code = POC Negative mg/dL UA Prot) [facility] [id number] 20:26:00 Test Item Value Reference Range Interpretation Comments POC UA Glu (test code = POC UA Negative mg/dL Glu) [facility] [id number] 20:26:00 Test Item Value Reference Range Interpretation Comments POC UA Ket (test code = POC UA Negative mg/dL Ket) [facility] [id number] 20:26:00 Test Item Value Reference Range Interpretation Comments POC UA Bili (test Negative *NA*(03/01/20 code = POC UA Bili) 3:26 PM) [facility] [id number] 20:26:00 Test Item Value Reference Range Interpretation Comments POC UA Bld (test code Negative *NA*(03/01/20 = POC UA Bld) 3:26 PM) [facility] [id number] 20:26:00 Test Item Value Reference Range Interpretation Comments POC UA Uro (test code = POC UA Uro) 0.2 0.1-1.0 [facility] [id number] 20:26:00 Test Item Value Reference Range Interpretation Comments POC UA Nit (test code Negative *NA*(03/01/20 = POC UA Nit) 3:26 PM) [facility] [id number] 20:26:00 Test Item Value Reference Range Interpretation Comments POC UA LeukEst (test Negative *NA*(03/01/20 code = POC UA LeukEst) 3:26 PM) [facility]
[2022-06-26] MEDS ORDERED: KETOROLAC 30 MG/ML INJ ONE (15:17)
[2022-06-26] MEDS ORDERED: DIPHENHYDRAMINE 50 MG/ML VIAL ONE (15:17)
[2022-06-26] MEDS ORDERED: METOCLOPRAMIDE 10 MG/2mL INJ ONE (15:17)
[2022-06-26] MEDS ORDERED: NA CHLORIDE 0.9% 1,000 ML ONE (15:18)
[2022-06-26] MEDS ORDERED: NA CHLORIDE 0.9% 50 ML IV ONE (16:25)
[2022-06-26] MEDS ORDERED: FOLIC ACID 5 MG/ML VIAL ONE (16:26)
--- NOTE | 2022-06-26 16:41 | EDPHYS ---
Physician Documentation [facility] Name: Mitchel Alberts Age: 46 yrs Sex: Male : 1975 Arrival Date: 06/26/2022 Time: 14:45 Bed 8 Private MD: Albino Marino ED Physician Giovanni Resendiz HPI: 06/26 16:39 This 46 yrs old Male presents to ER via Ambulatory with complaints of Headache, Nausea. kb 16:39 The patient complains of pain to the right side of head. The patient describes the kb headache as constant. Onset: The symptoms/episode began/occurred 3 day(s) ago. Associated signs and symptoms: Pertinent positives: nausea. Severity of symptoms: At its worst the pain was moderate, in the emergency department the pain is unchanged. Headache History: The patient has had previous headaches and this one is similar to previous episodes. The symptoms are alleviated by nothing. the symptoms are aggravated by lights, noise. The patient has experienced similar episodes in the past, chronically. The patient has not recently seen a physician. Pt reports he has a history of migraines. States this one is the same as previous, but is lasting longer and home meds aren't working. Historical: - Allergies: 14:59 Sulfa (Sulfonamide Antibiotics); hb - PMHx: 14:59 Migraine; hb - Immunization history:: Adult Immunizations up to date. - Social history:: Smoking status: Patient denies any tobacco usage or history of. ROS: 16:38 Constitutional: Negative for fever, chills, and weight loss. kb 16:38 Abdomen/GI: Positive for nausea. 16:38 Neuro: Positive for headache. 16:38 All other systems are negative. Exam: 16:38 Constitutional: This is a well developed, well nourished patient who is awake, alert, kb and in no acute distress. Head/Face: Normocephalic, atraumatic. Eyes: Pupils equal round and reactive to light, extra-ocular motions intact. Lids and lashes normal. Conjunctiva and sclera are non-icteric and not injected. Cornea within normal limits. Periorbital areas with no swelling, redness, or edema. ENT: Moist Mucous membranes Cardiovascular: Regular rate and rhythm with a normal S1 and S2. No gallops, murmurs, or rubs. No pulse deficits. Respiratory: Respirations even and unlabored. No increased work of breathing. Talking in full sentences Abdomen/GI: Soft, non-tender. No distention Skin: Warm, dry with normal turgor. Normal color. MS/ Extremity: Pulses equal, no cyanosis. Neurovascular intact. Full, normal range of motion. Neuro: Awake and alert, GCS 15, oriented to person, place, time, and situation. Moves all extremities. Normal gait. Psych: Awake, alert, with orientation to person, place and time. Behavior, mood, and affect are within normal limits. Vital Signs: 14:58 BP 145 / 96; Pulse 93; Resp 18; Temp 98.3; Pulse Ox 100% ; Weight 88.45 kg; Height 5 hb ft. 7 in. (170.18 cm); Pain 10/10; 17:15 BP 126 / 85; Pulse 80; Resp 16; Pulse Ox 99% ; Pain 4/10; mb8 14:58 Body Mass Index 30.54 (88.45 kg, 170.18 cm) hb Bowman Coma Score: 16:38 Eye Response: spontaneous(4). Verbal Response: oriented(5). Motor Response: obeys kb commands(6). Total: 15. MDM: 14:57 Patient medically screened. kb 16:38 Data reviewed: vital signs, nurses notes. Data interpreted: Pulse oximetry: on room air kb is 100 %. Interpretation: normal. Counseling: I had a detailed discussion with the patient and/or guardian regarding: the historical points, exam findings, and any diagnostic results supporting the discharge/admit diagnosis, the need for outpatient follow up, a neurologist, to return to the emergency department if symptoms worsen or persist or if there are any questions or concerns that arise at home. 16:38 Response to treatment: the patient's symptoms have markedly improved after treatment. kb 06/26 14:58 Order name: IV Start; Complete Time: 15:22 kb Administered Medications: 15:28 Drug: NS 0.9% 1000 ml Route: IV; Rate: 1000 ml; Site: left antecubital; mb8 16:00 Follow up: IV Status: Completed infusion mb8 15:28 Drug: Reglan (metoCLOPramide) 10 mg Route: IVP; Site: left antecubital; mb8 17:31 Follow up: Response: No adverse reaction; Nausea is decreased mb8 15:30 Drug: Benadryl (diphenhydrAMINE) 12.5 mg Route: IVP; Site: left antecubital; mb8 17:30 Follow up: Response: No adverse reaction; Pain is decreased; Nausea is decreased mb8 15:32 Drug: Ketorolac 30 mg Route: IVP; Site: left antecubital; mb8 17:30 Follow up: Response: No adverse reaction; Pain is decreased mb8 16:55 Drug: Decadron - Dexamethasone 10 mg Route: IVP; Site: right antecubital; mb8 17:31 Follow up: Response: No adverse reaction mb8 Disposition Summary: 06/26/22 16:40 Discharge Ordered Location: Home kb Condition: Stable kb Diagnosis - Migraine without aura, not intractable kb Followup: kb - With: Emergency Department - When: As needed - Reason: Worsening of condition Followup: kb - With: Private Physician - When: 2 - 3 days - Reason: Recheck today's complaints, Continuance of care, Re-evaluation by your physician Discharge Instructions: - Discharge Summary Sheet kb - Migraine Headache, [id number]-rg-[id number] kb Forms: - Medication Reconciliation Form kb - Thank You Letter kb - Antibiotic Education kb - Prescription Opioid Use kb Addendum: 07/01/2022 04:00 Co-signature as Attending Physician, Giovanni Resendiz MD I agree with the assessment and c blum plan of care. Signatures: Linda Todd, RYAN-C TRIAGE ASSISTANT-Giovanni Nichols MD MD cha Baxter, Heather, RN Vidal Goodwin RN RN mb8
--- NOTE | 2022-06-26 16:41 | ER ---
Nurse's Notes [facility] Name: Mitchel Alberts Age: 46 yrs Sex: Male : 1975 Arrival Date: 06/26/2022 Time: 14:45 Bed 8 Private MD: Albino Marino Diagnosis: Migraine without aura, not intractable Presentation: 06/26 14:58 Chief complaint: Patient states: HEADACHE X2 DAYS; TOLD BY HIPOL[place]O TO COME GET MIGRAINE hb COCKTAIL. Coronavirus screen: Vaccine status: Patient reports being unvaccinated. Client denies travel out of the [place] in the last 14 days. Ebola Screen: Patient negative for fever greater than or equal to 101.5 degrees Fahrenheit, and additional compatible Ebola Virus Disease symptoms Patient denies exposure to infectious person. Patient denies travel to an Ebola-affected area in the 21 days before illness onset. Initial Sepsis Screen: Does the patient meet any 2 criteria? No. Patient's initial sepsis screen is negative. Does the patient have a suspected source of infection? No. Patient's initial sepsis screen is negative. Risk Assessment: Do you want to hurt yourself or someone else? Patient reports no desire to harm self or others. Onset of symptoms was June 24, 2022. 14:58 Method Of Arrival: Ambulatory 14:58 Acuity: HUE 3 hb Triage Assessment: 14:59 Headache History: The patient has had previous headaches and this one is similar to hb previous episodes. General: Appears in no apparent distress. uncomfortable, slender, well groomed, well developed, well nourished, Behavior is calm, cooperative, appropriate for age. Pain: Pain currently is 10 out of 10 on a pain scale. Pain began gradually. Neuro: No deficits noted. Historical: - Allergies: 14:59 Sulfa (Sulfonamide Antibiotics); hb - PMHx: 14:59 Migraine; hb - Immunization history:: Adult Immunizations up to date. - Social history:: Smoking status: Patient denies any tobacco usage or history of. Screenin:25 Abuse screen: Denies threats or abuse. Denies injuries from another. Nutritional mb8 screening: No deficits noted. Tuberculosis screening: No symptoms or risk factors identified. Fall Risk None identified. Assessment: 15:25 Pain: Complains of pain in head Pain does not radiate. Pain currently is 10 out of 10 mb8 on a pain scale. Quality of pain is described as aching, Aggravated by light. Neuro: Reports headache. GI: Reports nausea, Patient currently denies diarrhea, vomiting. Vital Signs: 14:58 BP 145 / 96; Pulse 93; Resp 18; Temp 98.3; Pulse Ox 100% ; Weight 88.45 kg; Height 5 hb ft. 7 in. (170.18 cm); Pain 10/10; 17:15 BP 126 / 85; Pulse 80; Resp 16; Pulse Ox 99% ; Pain 4/10; mb8 14:58 Body Mass Index 30.54 (88.45 kg, 170.18 cm) hb Chaparro Coma Score: 16:38 Eye Response: spontaneous(4). Verbal Response: oriented(5). Motor Response: obeys kb commands(6). Total: 15. ED Course: 14:45 Patient arrived in ED. mr 14:45 Albino Marino DO is Private Physician. mr 14:52 [facility]C [facility]. kb 14:52 Giovanni Resendiz MD is Attending Physician. kb 14:59 Triage completed. hb 14:59 Arm band placed on right wrist. hb 15:16 Vidal Stringer, CLOVIS is Primary Nurse. mb8 15:25 Patient has correct armband on for positive identification. Fall risk band placed. Bed mb8 in low position. Call light in reach. Side rails up X2. Client placed on continuous cardiac and pulse oximetry monitoring. NIBP monitoring applied. 15:25 Inserted saline lock: 20 gauge in left antecubital area, using aseptic technique. mb8 15:36 No provider procedures requiring assistance completed. mb8 17:29 IV discontinued, intact, bleeding controlled, No redness/swelling at site. Pressure mb8 dressing applied. Administered Medications: 15:28 Drug: NS 0.9% 1000 ml Route: IV; Rate: 1000 ml; Site: left antecubital; mb8 16:00 Follow up: IV Status: Completed infusion mb8 15:28 Drug: Reglan (metoCLOPramide) 10 mg Route: IVP; Site: left antecubital; mb8 17:31 Follow up: Response: No adverse reaction; Nausea is decreased mb8 15:30 Drug: Benadryl (diphenhydrAMINE) 12.5 mg Route: IVP; Site: left antecubital; mb8 17:30 Follow up: Response: No adverse reaction; Pain is decreased; Nausea is decreased mb8 15:32 Drug: Ketorolac 30 mg Route: IVP; Site: left antecubital; mb8 17:30 Follow up: Response: No adverse reaction; Pain is decreased mb8 16:55 Drug: Decadron - Dexamethasone 10 mg Route: IVP; Site: right antecubital; mb8 17:31 Follow up: Response: No adverse reaction mb8 Medication: 15:36 VIS not applicable for this client. mb8 Outcome: 16:40 Discharge ordered by . kb 17:30 Discharged to home ambulatory, with family. mb8 17:30 Condition: stable 17:30 Discharge instructions given to patient, Instructed on discharge instructions, follow up and referral plans. Demonstrated understanding of instructions, follow-up care. 17:31 Patient left the ED. mb8 Signatures: Linda Todd, [employer]-Jeronimo KwonaMonisha mr Brandi Anne RN RN Vidal Stringer RN RN mb8 Corrections: (The following items were deleted from the chart) 15:36 15:35 Pain: Complains of pain in head Pain does not radiate. Pain currently is 10 out mb8 of 10 on a pain scale. Quality of pain is described as aching, Aggravated by light mb8 15:36 15:35 Neuro: Reports headache mb8 mb8 15:36 15:35 GI: Reports nausea, Patient currently denies diarrhea, vomiting, mb8 mb8
[2022-06-26] MEDS ORDERED: dexAMETHasone 10 MG/ML VIAL ONE (16:47)
[2022-06-26 18:15] VITALS: TEMP 98.3
[2022-06-26 18:16] VITALS: BP 126/85; O2SAT 99
== END 2022-06-26 17:31 | disposition home or self-care (01) ==
LOC: ER 14:40
DX: G43.009 Migraine without aura, not intractable, without status migrainosus (principal); Z88.2 Allergy status to sulfonamides
CPT/HCPCS: 99283; J2765; J1200; J1100; J7030